=== PATIENT | female | born 1960 | race Caucasian/White ===

== ENCOUNTER 2022-10-08 11:05 | Outpatient (OUT) | payer OTHER, SELFPAY ==
--- NOTE | 2022-10-08 11:32 | XR_ITS ---
[address] [address] Patient Name: MARIE VANG MRN: [id number] date: 1960 Sex: F Assigned Patient Location: [facility] Current Patient Location: [facility] Accession/Order Number: [id number] Exam Date: 10/08/2022 11:40 Report Date: 10/08/2022 12:48 At the request of: ZOHRA CASTLE Procedure: XR lumbar spine 2-3V EXAM: XR lumbar spine 2-3V HISTORY: Chronic bilateral low back pain w/o sciatica M54.50, G89.29 COMPARISON: None. TECHNIQUE: 3 views FINDINGS: Satisfactory alignment. Maintained vertebral body heights. Disc disease and facet arthropathy of L5-S1. No acute fracture or subluxation. Unremarkable soft tissues. IMPRESSION: Mild disc disease and facet arthropathy as above. Electronically authenticated by: RYLEY BECKHAM Date: 10/08/2022 12:48
--- NOTE | 2022-10-08 11:32 | XR_ITS ---
[address] [address] Patient Name: MARIE VANG MRN: [id number] date: 1960 Sex: F Assigned Patient Location: [facility] Current Patient Location: [facility] Accession/Order Number: [id number] Exam Date: 10/08/2022 11:40 Report Date: 10/08/2022 12:46 At the request of: ZOHRA CASTLE Procedure: XR cervical spine 2-3V EXAM: XR cervical spine 2-3V HISTORY: Chronic neck pain M54.2, G89.29 COMPARISON: None. TECHNIQUE: 3 views FINDINGS: Mild reversal of cervical spine lordosis. Maintained vertebral body heights. Multilevel endplate degenerative changes and disc disease of C4-C7. No acute fracture. Unremarkable soft tissues. IMPRESSION: Degenerative changes as above. Electronically authenticated by: RYLEY BECKHAM Date: 10/08/2022 12:46
== END 2022-10-08 11:06 | disposition home or self-care (01) ==
LOC: RAD 11:13
PROVIDERS: PCP Internal Medicine; Visit Provider Internal Medicine
DX: M54.2 Cervicalgia (principal); G89.29 Other chronic pain; M54.50 Low back pain, unspecified
CPT/HCPCS: 72040; 72100

== ENCOUNTER 2025-04-01 17:39 | Emergency (ER) | payer MEDICARE, SELFPAY ==
--- OUTSIDE RECORDS SUMMARY | 2025-03-28 10:30 | XMS_ITS | Encounter Summary ---
Author Organization [facility] Address [address] [facility] [place] [address] Care Team Providers Care Job Printer Apprentice Name Role Phone Glenn Laughlin MD Primary Care Provider [phone] Encounter Details DateTypeDepartmentCare Team (Latest Contact Info)Rpwfgtqomrg62/15/2025 10:30 AM ESTAncillary Procedure [facility] [address] [facility] [address] [place] [id number] Encounter for screening mammogram for malignant neoplasm of breast Social History Tobacco UseTypesPacks/DayYears UsedDateSmoking Tobacco: FormerCigarettesQuit: 04/14/1985Smokeless Tobacco: FormerAlcohol UseStandard Drinks/WeekCommentsNot Currently0 (1 standard drink = 0.6 oz pure alcohol)caffeine intake: 1-2 cups per dayHousing Stability Vital SignAnswerDate RecordedIn the last 12 months, was there a time when you were not able to pay the mortgage or rent on time?Patient xrnxrsi6810/02/2022Number of Places Lived in the Last YearNot on file10/02/2022In the last 12 months, was there a time when you did not have a steady place to sleep or slept in ashelter (including now)?Patient xibrujl3410/02/2022Humiliation, Afraid, Rape, and Kick questionnaireAnswerDate RecordedWithin the last year, have you been afraid of your partner or ex-partner?No02/03/2025Within the last year, have you been humiliated or emotionally abused in other ways by your partner or ex-partner?No02/03/2025Within the last year, have you been kicked, hit, slapped, or otherwise physically hurt by your partner or ex-partner?No 02/03/2025Within the last year, have you been raped or forced to have any kind of sexual activity by your partner or ex-partner?No02/03/2025Social Connection and Isolation PanelAnswerDate RecordedIn a typical week, how many times do you talk on the phone with family, friends, or neighbors?More than three times a week02/03/2025How often do you get together with friends or relatives?Three times a week02/03/2025How often do you attend episcopal or sabianism services?More than 4 times per year02/03/2025Do you belong to any clubs or organizations such as episcopal groups, unions, fraternal or athletic groups, or school groups?Yes 02/03/2025How often do you attend meetings of the clubs or organizations you belong to?More than 4 times per year02/03/2025re you , , , , never , or living with a partner?Fqomqad6102/03/2025 AUDIT-CAnswerDate RecordedQ1: How often do you have a drink containing alcohol? Never02/03/2025Q2: How many drinks containing alcohol do you have on a typical day when you are drinking?Patient does not drink02/03/2025Q3: How often do you have six or more drinks on one occasion?Never02/03/2025Overall Financial Resource Strain (CARDIA)AnswerDate RecordedHow hard is it for you to pay for the very basics like food, housing, medical care, and heating?Not hard at all 02/03/2025[facility] of Occupational Health - Occupational Stress QuestionnaireAnswerDate RecordedDo you feel stress - tense, restless, nervous, or anxious, or unable to sleep at night because yourmind is troubled all the time - these days?Only a nucjnx3202/03/2025Exercise Vital SignAnswerDate Recorded On average, how many days per week do you engage in moderate to strenuous exercise (like a brisk walk)?2 days02/03/2025On average, how many minutes do you engage in exercise at this level?40 min02/03/2025Hunger Vital SignAnswerDate RecordedWithin the past 12 months, you worried that your food would run out before you got the money to buymore.Never true02/03/2025Within the past 12 months, the food you bought just didn't last and you didn't have money to get more.Never true02/03/2025PRAPARE - TransportationAnswerDate RecordedIn the past 12 months, has lack of transportation kept you from medical appointments or from getting medications?No02/03/2025In the past 12 months, has lack of transportation kept you from meetings, work, or from getting things needed for daily living?No02/03/2025Housing Stability Vital SignAnswerDate RecordedIn the last 12 months, was there a time when you were not able to pay the mortgage or rent on time?No02/03/2025Number of Times Moved in the Last YearNot on file 02/03/2025t any time in the past 12 months, were you homeless or living in a group home (including now)?No02/03/2025B1300 Health LiteracyAnswerDate RecordedHow often do you need to have someone help you when you read instructions, pamphlets, or other written material from your doctor or pharmacy?Never 02/03/2025CommentsNoSex and Gender InformationValueDate RecordedSex Assigned at BirthNot on fileLegal UadQpqwlp89/15/2023 7:12 PM EDTGender Identity Not on fileSexual OrientationNot on filedocumented as of this encounter Plan of Treatment DateTypeDepartmentCare Team (Latest Contact Info)Btcqqjrhmus15/21/2026 11:45 AM ESTOffice Visit [facility] [place] [facility] [address] [place] [address] Damion Shankar MD [address] [place] [address] documented as of this encounter Procedures Procedure NamePriorityDate/TimeAssociated DiagnosisCommentsBI MAMMOGRAM SCREENING TOMOSYNTHESIS XNHRRPFPDDrxbtvh18/15/2025 10:49 AM EST Encounter for screening mammogram for malignant neoplasm of breast documented in this encounter Results * Bilateral screening mammogram with tomosynthesis (03/28/2025 10:49 AM EST) Anatomical RegionLateralityModalityBreastBilateralMammographySpecimen (Source) Anatomical Location / LateralityCollection Method / VolumeCollection Time Received Time03/28/2025 11:49 AM EST Impressions 03/28/2025 11:54 AM EST Impression: No specific evidence of malignancy seen in either breast. BIRADS 2 - Benign Findings DENSITY: There are scattered areas of fibroglandular density. FOLLOW-UP: Routine Screening Mammogram Board Certified Radiologists. ??Accredited by the ACR and FDA. MAMMOGRAPHY IS VERY IMPORTANT TO YOUR HEALTH. ??THE [employer] GUIDELINES RECOMMEND THAT WOMEN 40 YEARS OF AGE AND OLDER SHOULD HAVE A MAMMOGRAM EVERY YEAR. A REMINDER LETTER WILL BE SENT AT THE APPROPRIATE TIME. ?? ELECTRONICALLY SIGNED BY: Ace Esparza M.D. Narrative 03/28/2025 11:54 AM EST Examination: BI MAMMOGRAM SCREENING TOMOSYNTHESIS BILATERAL Clinical History: yearly Technique: Screening digital mammography study of both breasts was performed with 2-D and 3-D tomosynthesis imaging. Study was compared to the prior exam dated 03/26/2024. Findings: There is no evidence of interval dominant spiculated mass, grouped microcalcifications, or skin thickening which would be suggestive of malignancy. ?? A few benign-appearing calcifications are seen on the right. Axillary lymph nodes including partially visualized lymph nodes are noted bilaterally and appear grossly unremarkable. Procedure Note Ace Esparza MD - 03/28/2025 Examination: BI MAMMOGRAM SCREENING TOMOSYNTHESIS BILATERAL Clinical History: yearly Technique: Screening digital mammography study of both breasts wasperformed with 2-D and 3-D tomosynthesis imaging. Study was compared tothe prior exam dated 03/26/2024. Findings: There is no evidence of interval dominant spiculated mass,grouped microcalcifications, or skin thickening which would be suggestiveof malignancy. A few benign-appearing calcifications are seen on the right. Axillarylymph nodes including partially visualized lymph nodes are notedbilaterally and appear grossly unremarkable. IMPRESSION: Impression: No specific evidence of malignancy seen in either breast. BIRADS 2 - Benign Findings DENSITY: There are scattered areas of fibroglandular density. FOLLOW-UP: Routine Screening Mammogram Board Certified Radiologists. Accredited by the ACR and FDA. MAMMOGRAPHY IS VERY IMPORTANT TO YOUR HEALTH. THE [employer] GUIDELINES RECOMMEND THAT WOMEN 40 YEARS OF AGE AND OLDER SHOULD HAVE AMAMMOGRAM EVERY YEAR. A REMINDER LETTER WILL BE SENT AT THE APPROPRIATE TIME. ELECTRONICALLY SIGNED BY: Ace Esparza M.D. Authorizing ProviderResult TypeResult StatusDamion Shankar MDIMG BI PROCEDURES Final Result documented in this encounter Visit Diagnoses Diagnosis Encounter for screening mammogram for malignant neoplasm of breast documented in this encounter Care Teams Team MemberRelationshipSpecialtyStart DateEnd Date Glenn Laughlin MD [address] [place] [address] PCP - GeneralInternal Medicine09/10/22documented as of this encounter
--- OUTSIDE RECORDS SUMMARY | 2025-03-28 11:15 | XMS_ITS | Encounter Summary ---
Author Organization [facility] Address [address] [place] [address] Care Team Providers Care Php Web Developer Name Role Phone Glenn Laughlin MD Primary Care Provider [phone] Encounter Details DateTypeDepartmentCare Team (Latest Contact Info)Alnexlhatyu05/15/2025 11:15 AM ESTOffice Visit [facility] [address] [facility] [address] [place] [phone] Damion Shankar MD [address] [facility] [address] [place] [address] Osteoporosis, post-menopausal (Primary Dx); Urinary body odor; Cervical cancer screening; Gross hematuria Social History Tobacco UseTypesPacks/DayYears UsedDateSmoking Tobacco: FormerCigarettesQuit: 04/14/1985Smokeless Tobacco: FormerAlcohol UseStandard Drinks/WeekCommentsNot Currently0 (1 standard drink = 0.6 oz pure alcohol)caffeine intake: 1-2 cups per dayHousing Stability Vital SignAnswerDate RecordedIn the last 12 months, was there a time when you were not able to pay the mortgage or rent on time?Patient pmsobzc0210/02/2022Number of Places Lived in the Last YearNot on file10/02/2022In the last 12 months, was there a time when you did not have a steady place to sleep or slept in ashelter (including now)?Patient tfgidih9410/02/2022Humiliation, Afraid, Rape, and Kick questionnaireAnswerDate RecordedWithin the [...] times a week02/03/2025How often do you attend temple or sabianist services?More than 4 times per year02/03/2025Do you belong to any clubs or organizations such as temple groups, unions, fraternal or athletic groups, or school groups?Yes 02/03/2025How often do you attend meetings of the clubs or organizations you belong to?More than 4 times per year02/03/2025re you , , , , never , or living with a partner?Xksivhk5802/03/2025 AUDIT-CAnswerDate RecordedQ1: How often do you have [...] medical care, and heating?Not hard at all 02/03/2025Fin[facility] [place] of Occupational Health - Occupational Stress QuestionnaireAnswerDate RecordedDo you feel stress - tense, restless, nervous, or anxious, or unable to sleep at night because yourmind is troubled all the time - these days?Only a zprdqv2502/03/2025Exercise Vital SignAnswerDate Recorded On average, how many [...] were you homeless or living in a fdc (including now)?No02/03/2025B1300 Health LiteracyAnswerDate RecordedHow often do you need to have someone help you when you read instructions, pamphlets, or other written material from your doctor or pharmacy?Never 02/03/2025CommentsNoSex and Gender InformationValueDate RecordedSex Assigned at BirthNot on fileLegal RuzUjbzbe73/15/2023 7:12 PM EDTGender Identity Not on fileSexual OrientationNot on filedocumented as of this encounter Last Filed Vital Signs Vital SignReadingTime TakenCommentsBlood Bieczoin605/82/ 11:12 AM EST Pulse--Temperature--Respiratory Rate--Oxygen Saturation--Inhaled Oxygen Concentration--Frlfiy02.5 kg (162 lb)03/28/2025 11:12 AM ESTHeight--Body Mass Index27.8110 11:16 AM EDTdocumented in this encounter Progress Notes * Damion Shankar MD - 03/28/2025 11:15 AM EST Images from the original note were not included. Damion Shankar MD Obstetrics and Gynecology Patient: Ronda Murphy, : 1960 (64 y.o.) DOS 03/28/2025 Exam Date: 03/28/2025 HPI: Pt has osteoporosis. She is treating it with diest and exercose and Ca+D supplementation. DEXA is due next year Nees PAP today Visit Vitals BP 120/82 Wt 162 lb LMP (LMP Unknown) BMI 27.81 kg/m?? OB Status Postmenopausal Smoking Status Former BSA 1.82 m?? OB History Para Term AB Living 3 1 1 0 0 1 SAB IAB Ectopic Multiple Live Births 0 0 0 0 1 # Outcome Date GA Lbr William/2nd Weight Sex Type Anes PTL Lv 3 2 1 Term Obstetric Comments Pap: 04/05-Neg WALTER: HPV Neg Mammo: 03/26/24-Neg ([facility]) DEXA: 04/06-osteoporosis Menopausal Medication and Allergies Medication Documentation Review Audit Reviewed by Lalita Hines MA (Nitrogen Operator) on 03/28/25 at 1117 Medication Order Taking? Sig Documenting Provider Last Dose Status B Complex Vitamins (VITAMIN B COMPLEX 100 IJ) [id number] Take 1 tablet by mouth Daily as needed. Historical ProviderMD Active Calcium Carb-Cholecalciferol (Caltrate 600+D3) 600-20 MG-MCG tablet [id number] 1 (one) time each day at the same time. Historical ProviderMD Active cholecalciferol (Vitamin D-3) 50 MCG (1999 UT) capsule 91344468 Daily. Historical ProviderMD Active coenzyme Q-10 30 MG capsule [id number] Take 1 capsule by mouth 1 (one) time each day. Historical ProviderMD Active Famotidine (PEPCID PO) 853559987 Yes Take by mouth Damion Shankar MD Active glucose blood (Accu-Chek Jessa Plus) test strip 50802276 1 each by Other route Daily Glenn Laughlin MD Active levothyroxine (Synthroid, Levoxyl) 75 MCG tablet [id number] TAKE 1 TABLET IN THE MORNING BEFORE A MEAL Glenn Laughlin MD Active liothyronine (Cytomel) 5 MCG tablet 94862316 TAKE 1 TABLET DAILY Glenn Laughlin MD Active Menaquinone-7 (VITAMIN K2 PO) 32602118 Take by mouth Damion Shankar MD Active Allergies Allergen Reactions Bactrim [Sulfamethoxazole-Trimethoprim] Other Pt states makes her shaky and does not like the way she feels taking this Ciprofloxacin Unknown Codeine Unknown Paroxetine Hcl Unknown Past Medical History: Diagnosis Date Breast cyst Combined hyperlipidemia Fibrocystic breast History of prediabetes Iatrogenic hypothyroidism Microscopic hematuria Osteoarthritis Left knee Osteopenia Osteoporosis Past Surgical History: Procedure Laterality Date APPENDECTOMY BREAST LUMPECTOMY 1985? COLONOSCOPY 2016 negative ECTOPIC SURGERY x2 KNEE ARTHROSCOPY W/ LASER Left 02/19/2021 THYROIDECTOMY TUBAL LIGATION Bilateral VAGINAL DELIVERY Physical Exam: Objective Physical Exam Constitutional: Appearance: Normal appearance. Genitourinary: Vulva normal. No vaginal discharge or bleeding. Mild vaginal atrophy present. Right Adnexa: not palpable. Left Adnexa: not palpable. No cervical lesion. Uterus is not enlarged or tender. Breasts: Right: Normal. Left: Normal. Pulmonary: Effort: Pulmonary effort is normal. Abdominal: General: Abdomen is flat. Palpations: Abdomen is soft. Neurological: Mental Status: She is alert. Assessment/Plan ICD-10-CM 1. Osteoporosis, post-menopausal M81.0 2. Urinary body odor L75.0 Urine dip Urine culture Urinalysis with reflex microscopic 3. Cervical cancer screening Z12.4 IGP,rfx Aptima HPV all pth 4. Gross hematuria R31.0 Urine dip Urine culture Urinalysis with reflex microscopic Orders Placed This Encounter Procedures Urine culture Print requisition?: Yes Urinalysis with reflex microscopic Print requisition?: Yes Urine dip documented in this encounter Plan of Treatment DateTypeDepartmentCare Team (Latest Contact Info)Qukjsechknp40/21/2026 11:45 AM ESTOffice Visit [facility] [place] [facility] [address] [place] [address] Damion Shankar MD [address] [place] [address] NameTypePriorityAssociated DiagnosesOrder ScheduleUrine cultureMicrobiology Routine Urinary body odor Gross hematuria Ordered: 03/28/2025documented as of this encounter Procedures Procedure NamePriorityDate/TimeAssociated DiagnosisCommentsPOCT URINALYSIS CNNOFKFHLnirhle85/15/2025 11:27 AM EST Urinary body odor Gross hematuria URINE CULTURE CLEAN CATCH IOGCQGPzvorgu07/15/2025 12:00 AM EST IGP,RFX APTIMA HPV ALL BDOYhueowt68/15/2025 12:00 AM EST Cervical cancer screening URINALYSIS CAJTZEBaevqul43/15/2025 12:00 AM EST Urinary body odor Gross hematuria CULTURE, URINE, VMTIOFYThqsvfz60/15/2025 12:00 AM EST documented in this encounter Results * Urine dip (03/28/2025 11:27 AM EST)ComponentValueRef RangeTest MethodAnalysis TimePerformed AtPathologist SignatureColor, UAYellowClarity, UAClearGlucose, UANegativeNegative - 2000(110) ++++ mg/dLBilirubin, UANegativeNegative - 4(70) +++ mg/dLKetones, UANegativeNegative - 160(16) ++++ mg/dLSpec Grav, UA1.0151 - 1.03Blood, UAPositiveNegative - 50 Tapan/mcLComment:TracepH, UA5.05 - 9Protein, UANegativeNegative - 2000(20) ++++ mg/dLUrobilinogen, UA>=8.00.2 - 12 mg/dL Leukocytes, UANegativeNegative - 500+++ Mely/mcLNitrite, UANegativeNegative - PositiveSpecimen (Source)Anatomical Location / LateralityCollection Method / VolumeCollection TimeReceived FuytHiyni15/15/2025 11:27 AM EST Narrative Authorizing ProviderResult TypeResult [facility] ENTERPRISEOINT OF CARE TEST ENTER/EDIT ORDERABLESFinal Result * Urine Culture Clean Catch Reflex (03/28/2025 12:00 AM EST)ComponentValueRef RangeTest MethodAnalysis TimePerformed AtPathologist SignatureUr Cult 1No growthLABCORPSpecimen (Source)Anatomical Location / LateralityCollection Method / VolumeCollection TimeReceived Time Narrative [facility] - 03/30/2025 2:06 AM EST Performed at: 01 - [facility] ??[id number] Eyelet Riveter: Mohan Castillo PhD, Phone: ??[phone] Authorizing ProviderResult TypeResult StatusDamion MUSTAFA URINE ORDERABLESFinal ResultPerforming OrganizationAddressCity/State/[facility] CodePhone Number [facility] * Urine culture (03/28/2025 12:00 AM EST)ComponentValueRef RangeTest Method Analysis TimePerformed AtPathologist SignatureUrine Cult Rt StatusFinal report LABCORPSpecimen (Source)Anatomical Location / LateralityCollection Method / VolumeCollection TimeReceived Timeomment:Urine, Clean Catch Pr Narrative [facility] - 03/30/2025 2:06 AM EST Performed at: [facility] ??[id number] Eyelet Riveter: Mohan Castillo PhD, Phone: ??[phone] Authorizing ProviderResult TypeResult Favio MUSTAFA MICROBIOLOGY - GENERAL ORDERABLESFinal ResultPerforming OrganizationAddressCity/State/ZIP Code Phone Number [facility] * Urinalysis with reflex microscopic (03/28/2025 12:00 AM EST)ComponentValueRef RangeTest MethodAnalysis TimePerformed AtPathologist SignatureSpecific [place] Urine1.0241.005 - 1.030LABCORPpH Urine6.05.0 - 7.5LABCORPColor UrineYellow YellowLABCORPAppearance UrineClearClearLABCORPWBC Esterase UrineNegative NegativeLABCORPProtein UrineNegativeNegative/TraceLABCORPGlucose UrineNegative NegativeLABCORPKetones UrineNegativeNegativeLABCORPOccult Blood UrineNegative NegativeLABCORPBilirubin UrineNegativeNegativeLABCORPUrobilinogen,Semi-Qn Urine0.20.2 - 1.0 mg/dLLABCORPNitrite UrineNegativeNegativeLABCORPUr MicroscopicCommentLABCORPComment:Microscopic not indicated and not performed. Specimen (Source)Anatomical Location / LateralityCollection Method / Volume Collection TimeReceived TimeUrineUrine specimen obtained by clean catch procedure / Nhswfta19/15/68898605/29/2024 Narrative [facility] - 03/30/2025 2:06 AM EST Performed at: - [facility] ??[id number] Eyelet Riveter: Mohan Castillo PhD, Phone: ??[phone] Authorizing ProviderResult TypeResult StatusDamion MUSTAFA URINE ORDERABLESFinal ResultPerforming OrganizationAddressCity/State/ZIP CodePhone Number [facility] * IGP,rfx Aptima HPV all pth (03/28/2025 12:00 AM EST)ComponentValueRef Range Test MethodAnalysis TimePerformed AtPathologist SignatureDiagnosis:Comment LABC[facility]PComment: NEGATIVE FOR INTRAEPITHELIAL LESION OR MALIGNANCY. CELLULAR CHANGES ASSOCIATED WITH ATROPHY ARE PRESENT. THIS SPECIMEN WAS RESCREENED PART OF OUR OPERATOR ASSISTANT I CEMENTING PROGRAM. Specimen Adequacy:CommentLABCORPComment: Satisfactory for evaluation. ??Endocervical component may not be distinguished in cases of atrophy. Clinician Provided ICD10:CommentLABCORPComment:Z12.4Performed By:CommentLABCORP Comment:Tucker Gallegos, Chief Of Service (ASCP)QC Reviewed By:CommentLABCORPComment:Maria Luisa Grimm, Chief Of Service (ASCP)Cyto Comments.LABCORPNote:CommentLABCORPComment: The Pap smear is a screening test designed to aid in the detection of premalignant and malignant conditions of the uterine cervix. ??It is not a diagnostic procedure and should not be used as the sole means of detecting cervical cancer. ??Both false-positive and false-negative reports do occur. Test Methodology:CommentLABCORPComment: This liquid based ThinPrep(R) pap test was interpreted using the Panopto(R) Genius(TM) Cervical Algorithm whole slide imaging system. .CommentLABCORPComment: The HPV DNA reflex criteria were not met with this specimen result therefore, no HPV testing was performed. Specimen (Source)Anatomical Location / LateralityCollection Method / Volume Collection TimeReceived TimeSwabCervical swab / Qyxibdz49 Comment:Cervical Swab Print r Narrative [facility] - 03/30/2025 2:07 PM EST Performed at: 01 - [facility] [address] ??[id number] Eyelet Riveter: Val Marrero MD, Phone: ??[phone] Specimen Comment: [id number] Specimen Comment: Source.............Cervix Specimen Comment: No. of containers..01 ThinPrep Vial Authorizing ProviderResult TypeResult StatusDamion Shankar MDLAB CYTOLOGY ORDERABLESFinal ResultPerforming OrganizationAddressCity/State/ZIP CodePhone Number [facility] documented in this encounter Visit Diagnoses Diagnosis Osteoporosis, post-menopausal- Primary Senile osteoporosis Urinary body odor Other specified disorder of sweat glands Cervical cancer screening Screening for malignant neoplasm of the cervix Gross hematuria documented in this encounter Care Teams Team MemberRelationshipSpecialtyStart DateEnd Date Glenn Laughlin MD [address] [facility] [address] [place] [address] PCP - GeneralInternal Medicine09/10/22documented as of this encounter
[2025-04-01 17:45] VITALS: BP 140/92; PULSE 87; TEMP 36.6; O2SAT 97; BMI 27.5
--- NOTE | 2025-04-01 18:00 | ED_ITS ---
<Statement entered by Pau Brown MD - 04/01/25 18:39> This documentation has been reviewed and approved. HPI HPI - General Adult General Chief complaint: Wound/Laceration Stated complaint: Laceration Time Seen by Provider: 04/01/25 17:46 Source: patient Mode of arrival: walk-in History of Present Illness HPI narrative: Patient is a 64-year-old female that presents to the emergency department with complaints of laceration to the medial aspect of the left fifth digit over the DIP joint while cutting vegetables with a kitchen knife. Patient denies taking any anticoagulation or antiplatelet medications. She states she almost did not come in because she would get the bleeding stopped but when she bends her finger it restarts again. Related Data Home Medications ?Medication ?Instructions ?Recorded ?Confirmed levothyroxine 75 mcg tablet 75 mcg PO DAILY 04/01/25 1 06/02/24 liothyronine 5 mcg tablet 5 mcg PO DAILY 04/01/2503/14 Allergies Allergy/AdvReac Type Severity Reaction Status Date / Time codeine Allergy nausea, Verified 04/01/25 17:44 vomiting Opioid HPI Opioid Management Most Recent Opioid Data: Last Pain Scale 1 04/01/25, 17:45 Review of Systems ROS Status of ROS 10 or more systems reviewed and unremark able except as noted in history and below PFSH PFSH Social History Little interest or pleasure in doing things: not at all Feeling down, depressed, or hopeless: not at all Exam Narrative Exam Narrative: General: No distress, age-appropriate Skin: Warm, dry, no pallor. No rash. Left fifth digit medial side of DIP joint laceration approximately 0.5 cm, venous oozing on exam. Head: Normocephalic, atraumatic. Neck: Supple, non-tender. Eye: Pupils are equal, round and EOMI. No scleral icterus. Cardiovascular: Regular Rate and Rhythm without murmur, gallop or rub. Respiratory: No accessory muscle use or respiratory distress. Musculoskeletal: Full ROM of all extremities, no calf or popliteal tenderness. Full flexion/extension actively of the left fifth digit with 5/5 strength at the DIP, PIP, and MCP. Neurological: A&O x4. No cranial nerve dysfunction observed. No truncal ataxia. Moves all extremities. Sensation intact. Psychiatric: Cooperative and interactive. Normal mood and affect. Constitutional Vital Signs, click to edit/add: Last Vital Signs Temp 97.8 F 04/01/25 17:45 Pulse 87 04/01/25 17:45 Resp 16 04/01/25 17:45 BP 140/92 H 04/01/25 17:45 Pulse Ox 97 04/01/25 17:45 O2 Del Method Room Air 04/01/25 17:45 Documenting provider has reviewed patient's vital signs: yes Course Vital Signs Vital signs: Vital Signs Temperature 97.8 F 04/01/25 17:45 Pulse Rate 87 04/01/25 17:45 Respiratory Rate 16 04/01/25 17:45 Blood Pressure 140/92 H 04/01/25 17:45 Pulse Oximetry 97 04/01/25 17:45 Oxygen Delivery Method Room Air 04/01/25 17:45 Temperature 97.8 F 04/01/25 17:45 Pulse Rate 87 04/01/25 17:45 Respiratory Rate 16 04/01/25 17:45 Blood Pressure 140/92 H 04/01/25 17:45 Pulse Oximetry 97 04/01/25 17:45 Oxygen Delivery Method Room Air 04/01/25 17:45 Medical Decision Making [facility] Narrative Medical decision making narrative: The patient is a 64-year-old female who presented with a laceration to the lateral (ulnar) aspect of the left fifth digit over the DIP joint sustained while cutting vegetables, approximately 0.5cm. There is no evidence at this time of arterial, ligament, or tendon involvement. There is full DIP flexion/extension and 5/5 strength. <2s cap refill and sensation is intact with light touch. The laceration was thoroughly assessed, and two sutures were placed to close the wound. Given the location and mechanism of injury, a finger splint was applied to the affected digit for 3 days, with the goal of preventing DIP flexion and facilitating proper wound healing. The left digit was assessed after the splint was placed and she remains NV intact. The patient is up to date on her tetanus vaccination. Dressing was applied, wound care was discussed, and close follow-up is advised to monitor for signs of infection and to remove sutures in 5-7 days with PCP. Differential Diagnosis Differential Diagnosis: Laceration Discharge Plan Discharge Chief Complaint: Wound/Laceration Clinical Impression: Finger laceration Patient Disposition: Home, Self-Care Time of Disposition Decision: 18:34 Condition: Good Mode of Transportation: Private Vehicle Prescriptions / Home Meds: No Action levothyroxine 75 mcg tablet 75 mcg PO DAILY liothyronine 5 mcg tablet 5 mcg PO DAILY Print Language: Mongolian Instructions: Finger Laceration (ED) Additional Instructions: Wound Care * Keep the wound clean and dry for the first 24?48 hours. * After 24 hours, gently clean the area with mild soap and water. Pat dry?do not scrub. * Apply a thin layer of antibiotic ointment (if prescribed) and cover with a clean, dry bandage. Dressing Changes * Change the dressing daily or if it becomes wet or dirty. * Wash your hands before and after changing the dressing. Splint Use * Wear the finger splint continuously for the next 3 days to limit movement and help prevent wound dehiscence. * You may remove the splint briefly for hygiene and dressing changes, but avoid bending the finger. * After 3 days, you may discontinue the splint unless otherwise directed. Activity and Protection * Avoid repetitive bending, gripping, or heavy use of the injured finger until sutures are removed. * Keep the hand elevated when possible to reduce swelling and bleeding. Bleeding * Mild oozing may occur for the first 24 hours. * If bleeding restarts, apply firm pressure with a clean cloth or bandage for 10?15 minutes without checking. * Seek care if bleeding does not stop. Signs of Infection Return for care if you notice: * Increasing redness, warmth, or swelling * Pus or foul-smelling drainage * Fever or chills * Worsening pain Suture Removal * Sutures over the finger joint should be removed in 7-10 days. * Follow up with your primary care provider, urgent care, or return to the ED for removal. Return to the Emergency Department Immediately If: * Bleeding will not stop after 15 minutes of pressure * You develop numbness, tingling, or difficulty moving the finger * The wound opens or sutures pull apart Referrals: ZOHRA CASTLE [Primary Care Provider, Internal Medicine] - 1 week Referral Note: Suture removal in 7-10 days. Discharge Date/Time: 04/01/25 18:39 Procedures ED Laceration Laceration Laceration 1: Site: hand (Lateral 5th digit near DIP) Side (if applicable): left Size (cm): 0.05 Description: linear Depth: simple, single layer Anesthetic used: lidocaine 1% Anesthesia technique: local infiltration Amount (ml): 1 Pre-repair: wound explored, irrigated extensively and deep structures intact Skin layer closed with: other (Ethilon) Size (cm): 4-0 and 5-0 Number of sutures: 2 ED Ortho Splinting/Casting Orthopedic Splinting/Casting Injury #1: Side: left Splint type: Splint finger Upper extremity injury location: finger (Left 5th digit) Upper extremity immobilizer: finger (other)
[2025-04-01] MEDS: LIDOCAINE HCL 1% 100 MG/10 ML MDV INJ (18:12)
--- NOTE | 2025-04-01 18:14 | PC.NURSE ---
suture cart set up and laceration not bleeding at this time
--- OUTSIDE RECORDS SUMMARY | 2025-04-01 18:28 | XMS_ITS | Encounter Summary ---
Author Organization [facility] Address [address] [place] [address] Care Team Providers Care Advance Scout Name Role Phone Glenn Laughlin MD Primary Care Provider [phone] Encounter Details DateTypeDepartmentCare Team (Latest Contact Info)Hbsiugfeklk88/15/2025Travel Social History Tobacco UseTypesPacks/DayYears UsedDateSmoking Tobacco: FormerCigarettesQuit: 04/14/1985Smokeless Tobacco: FormerAlcohol UseStandard Drinks/WeekCommentsNot Currently0 (1 standard drink = 0.6 oz pure alcohol)caffeine intake: 1-2 cups per dayHousing Stability Vital SignAnswerDate RecordedIn the last 12 months, was there a time when you were not able to pay the mortgage or rent on time?Patient vpwdixm2110/02/2022Number of Places Lived in the Last YearNot on file10/02/2022In the last 12 months, was there a time when you did not have a steady place to sleep or slept in [facility] (including now)?Patient copqyez0410/02/2022Humiliation, Afraid, Rape, and Kick questionnaireAnswerDate RecordedWithin the [...] times a week02/03/2025How often do you attend yarsanism or worship services?More than 4 times per year02/03/2025Do you belong to any clubs or organizations such as yarsanism groups, unions, fraCHAINels or athletic groups, or school groups?Yes 02/03/2025How often do you attend meetings of the clubs or organizations you belong to?More than 4 times per year02/03/2025re you , , , , never , or living with a partner?Mvbbxdf6402/03/2025 AUDIT-CAnswerDate RecordedQ1: How often do you have [...] medical care, and heating?Not hard at all 02/03/2025[facility] - Occupational Stress QuestionnaireAnswerDate RecordedDo you feel stress - tense, restless, nervous, or anxious, or unable to sleep at night because yourmind is troubled all the time - these days?Only a behpjz2702/03/2025Exercise Vital SignAnswerDate Recorded On average, how many days per week do you engage in moderate to strenuous exercise (like a brisk walk)?2 days02/03/2025On average, how many minutes do you engage in exercise at this level?40 min10/23/2025Hunger Vital SignAnswerDate RecordedWithin the past 12 months, [...] InformationValueDate RecordedSex Assigned at BirthNot on fileLegal SgzCslcfs17/15/2023 7:12 PM EDTGender Identity Not on fileSexual OrientationNot on filedocumented as of this encounter Plan of Treatment DateTypeDepartmentCare Team (Latest Contact Info)Djkmjjrxezf21/21/2026 11:45 AM ESTOffice Visit [facility] [place] [facility] [address] [place] [address] Damion Shankar MD [address] [facility] [address] [place] [address] documented as of this encounter Visit Diagnoses Not on filedocumented in this encounter Care Teams Team MemberRelationshipSpecialtyStart DateEnd Date Glenn Laughlin MD [address] [facility] [address] [place] [address] PCP - GeneralInternal Medicine09/10/22documented as of this encounter
--- OUTSIDE RECORDS SUMMARY | 2025-04-01 18:28 | XMS_ITS | Clinical Summary ---
Author Organization [facility] Address [address] [place] [address] Phone Care Team Providers Care Drilling Fluids Specialist Name Role Phone Glenn Laughlin MD Primary Care Provider [phone] Encounters DateTypeDepartmentCare LxbqBsbuqnamzps08/13/2025 12:30 PM ESTAncillary Procedure [place] [id number] [facility] [address] [place] [id number] Encounter for screening for cardiovascular jwlzbhmpe43/12/7099Tqwpjk92/12/2025 Transcribe Orders [facility] [address] Virtual [place] [address] Glenn Laughlin MD Encounter for screening for cardiovascular disorders (Primary Dx)from Last 3 Months Social History Tobacco UseTypesPacks/DayYears UsedDateSmoking Tobacco: Never Assessed CommentsUnknownSex and Gender InformationValueDate RecordedSex Assigned at Not on fileLegal RysSmybfq51/26/2022 5:05 PM ESTGender IdentityNot on fileSexual OrientationNot on file Plan of Treatment Health MaintenanceDue DateLast DoneCommentsCT Ydgakcmhqrqh73/19/1960Colonoscopy 1959Colorectal Cancer Bhoktjawf47/19/1960FIT-DNA (Cologuard)1959FIT 1959Lipid Panel1959 5572Udupceigleptn73/19/1960Welcome to Medicare Visit 1959MMR Vaccines (1 of 1 - Standard series)1960Hepatitis C Screening 1977Cervical Cancer Gbpqcspgz96/19/1981HPV/Fmfmyn4705/02/1980Pap Smear 1980Pneumococcal Vaccine (1 of 1 - PCV)2009COVID-19 Vaccine (1 - season)2024Influenza Vaccine (#1), 02/18/2020, 12/30/2018, Additional history zdkgtsPtqfwdcky97/13/202512/, 03/26/2024, 03/18/2023, Additional history existsTSH Level/5Bone Density Scan, 03/13/2022, 12/30/2019DTaP/Tdap/Td Vaccines (2 - Td or Tdap)RSV High Risk: (Elderly (60+) or Population) (1 - 1-dose 75+ series)2034Zoster BpcskwdmCpefmkjnq33/22/2021, 12/28/2019 HIB VaccinesAged OutNo longer eligible based on patient's age to complete this topicHPV VaccinesAged OutNo longer eligible based on patient's age to complete this topicHepatitis A VaccinesAged OutNo longer eligible based on patient's age to complete this topicHepatitis B VaccinesAged OutNo longer eligible based on patient's age to complete this topicIPV VaccinesAged OutNo longer eligible based on patient's age to complete this topicMeningococcal VaccineAged OutNo longer eligible based on patient's age to complete this topicRotavirus VaccinesAged Out No longer eligible based on patient's age to complete this topic Procedures Procedure NamePriorityDate/TimeAssociated DiagnosisCommentsCT CARDIAC SCORING WO IV AQJUYJGPWbjgrjy83/13/2025 12:16 PM EST Encounter for screening for cardiovascular disorders from Last 3 Months Results * CT cardiac scoring wo IV contrast (02/24/2025 12:16 PM EST)Anatomical Region LateralityModalityThoracic, ChestComputed TomographySpecimen (Source) Anatomical Location / LateralityCollection Method / VolumeCollection Time Received Time02/24/2025 11:05 PM EST02/28/2025 4:29 PM EST Addenda Addendum by Anisha Liang MD on 02/28/2025 4:28 PM EST Interpreted By: ??Db Liang, ADDENDUM: Technical: The following is to serve as an over-read for an unenhanced cardiac CT, to evaluate the extravascular structures. ?? Contiguous unenhanced CT sections are performed from level the hamida to the upper abdomen. ? Findings: The visualized portions of both lungs are clear. ?? There is no sign of pathologic lymph node enlargement. There is no pericardial or pleural effusion. ?? Images through the upper abdomen are unremarkable. ?? The visualized osseous structures are intact. ? Impression: The extravascular structures have an unremarkable CT appearance. ?? Signed by: Db Liang 02/28/2025 4:28 PM ?? -------- ORIGINAL REPORT -------- Dictation workstation: ?? [id number] Impressions 02/24/2025 11:04 PM EST 1. Coronary artery calcium score of 0*. ?? *Coronary artery calcium scoring may be helpful in predicting the risk for future coronary heart disease events. ??According to the [employer] Clinical Expert Consensus Task Force, such testing provides important prognostic information in patients with more than one coronary heart disease risk factor. The coronary artery calcium score correlates with the annual risk of a non-fatal myocardial infarction or coronary heart disease . ?? Coronary artery score ?Annual Risk ?? 0-99 ? 0.4% 100-399 ?1.3% >400 2.4% ?? These three breakpoints correspond to lower, intermediate and high risk states for future coronary events. ??Such information should be used, along with appropriate clinical judgment, to make decisions regarding the intensity of risk factor management strategies to treat blood lipids and to modify other non-lipid coronary risk factors. ?? Reference: Thornton P et al. Circulation. ??2007; 115:402-426 ?? Reading Supervisor [employer]: Dr. Db Lyon, Date: 02/24/2025 11:04 pm ?? Signed by: Db Lyon 02/24/2025 11:04 PM Dictation workstation: ?? [id number] Narrative 02/24/2025 11:04 PM EST Interpreted By: Db Lyon, STUDY: CT CARDIAC SCORING WO IV CONTRAST; 02/24/2025 12:16 pm ?? INDICATION: Signs/Symptoms:see dx. ?? COMPARISON: None. ?? ACCESSION NUMBER(S): [id number] ?? ORDERING CLINICIAN: GLENN LAUGHLIN ?? TECHNIQUE: Using prospective ECG gating, CT scan of the coronary arteries was performed without intravenous contrast. Coronary calcium scoring ??was performed according to the method of Agatston. ?? CT Dose-Length Product (DLP): 97.52 mGy*cm CT Dose Reduction Employed: Yes, prospective gating, iterative reconstruction. ?? FINDINGS: The score and distribution of calcium in the coronary arteries is as follows: ?? LM ? 0 LAD ? 0 LCx ?0 RCA ? 0 ?? Total ? 0 ?? The visualized mid/lower ascending thoracic aorta measures 3.1 cm in diameter. The heart is normal in size. No pericardial effusion is present. ?? Procedure Note Db Lyon DO / Anisha Liang MD - 02/24/2025 Interpreted By: Db Lyon, STUDY: CT CARDIAC SCORING WO IV CONTRAST; 02/24/2025 12:16 pm INDICATION: Signs/Symptoms:see dx. COMPARISON: None. ACCESSION NUMBER(S): [id number] ORDERING CLINICIAN: GLENN LAUGHLIN TECHNIQUE: Using prospective ECG gating, CT scan of the coronary arteries was performed without intravenous contrast. Coronary calcium scoring was performed according to the method of Agatston. CT Dose-Length Product (DLP): 97.52 mGy*cm CT Dose Reduction Employed: Yes, prospective gating, iterative reconstruction. FINDINGS: The score and distribution of calcium in the coronary arteries is as follows: LM 0 LAD 0 LCx 0 RCA 0 Total 0 The visualized mid/lower ascending thoracic aorta measures 3.1 cm in diameter. The heart is normal in size. No pericardial effusion is present. IMPRESSION: 1. Coronary artery calcium score of 0*. *Coronary artery calcium scoring may be helpful in predicting the risk for future coronary heart disease events. According to the [employer] Clinical Expert Consensus Task Force, such testing provides important prognostic information in patients with more than one coronary heart disease risk factor. The coronary artery calcium score correlates with the annual risk of a non-fatal myocardial infarction or coronary heart disease . Coronary artery score Annual Risk 0-99 0.4% 100-399 1.3% >400 2.4% These three breakpoints correspond to lower, intermediate and high risk states for future coronary events. Such information should be used, along with appropriate clinical judgment, to make decisions regarding the intensity of risk factor management strategies to treat blood lipids and to modify other non-lipid coronary risk factors. Reference: Thornton P et al. Circulation. 2007; 115:402-426 Reading Supervisor [employer]: Dr. Db Lyon, Date: 02/24/2025 11:04 pm Signed by: Db Lyon 02/24/2025 11:04 PM Dictation workstation: [id number] Authorizing ProviderResult TypeResult StatusDamilagros Laughlin MDJaswant CT PROCEDURES Edited Result - Final from Last 3 Months Insurance Care Teams Team MemberRelationshipSpecialtyStart DateEnd Glenn Laughlin MD [address] [address] PCP - GeneralInternal Gcimcuku13/13/25
--- OUTSIDE RECORDS SUMMARY | 2025-04-01 18:28 | XMS_ITS | Clinical Summary ---
Author Organization [facility] Address [address] [place] [id number] Care Team Providers Care Pre Coder Name Role Phone Truman ESTRADA MD, Glenn Fulton Primary Care Provider [phone] Allergies Active AllergyReactionsCriticalityNoted DateCommentsCiprofloxacinUnknown 4609HxopelfYfomewnz36/15/2022aroxetine HclMental Status Ycxrpd8207/27/2021 Sulfamethoxazole-TrimethoprimOther: See Esdcumgt90/09/2024 Pt states made blood sugar drop; was shaking Medications MedicationSigDispense QuantityRefillsLast FilledStart DateEnd DateStatus levothyroxine (SYNTHROID) 75 mcg tablet Indications:Postsurgical hypothyroidismTake 1 tablet by mouth daily before breakfast. 90 tablet 5Active liothyronine (CYTOMEL) 5 mcg tablet Indications:Postsurgical hypothyroidismTake 1 tablet by mouth once daily. 90 tablet 5Active famotidine (PEPCID AC) 10 mg tablet Take 1 tablet by mouth two times a day.5Active Active Problems ProblemNoted DateDiagnosed VujvGgeclddprsh20/15/2024Mixed hyperlipidemia 01/27/2024ostsurgical vjxxwavhszhnpp92/15/2024 Encounters DateTypeDepartmentCare VxtlOttayzwfvna90/16/2025 11:40 AM EDTOffice Visit Endocrinology [address] [place], [place] [id number] Hernandez Leos MD Mixed hyperlipidemia (Primary Dx); Postsurgical hypothyroidism; Cfezmbfjxuj39/16/3033Pmqsmk25/02/2025Travelfrom Last 3 Months Family History Medical HistoryRelationCommentsThyroidBrotherThyroidMotherThyroidSisterGraves diseaseRelationStatusCommentsBrotherMotherSister Social History Tobacco UseTypesPacks/DayYears UsedDateSmoking Tobacco: YzkiedGpiegcejhv73034 - 1974Passive Smoke Exposure: NeverSmokeless Tobacco: Never Tobacco Cessation:Counseling Given: Not Answered Alcohol UseStandard Drinks/WeekCommentsNever0 (1 standard drink = 0.6 oz pure alcohol)Area Deprivation IndexAnswerDate RecordedNational Score (1-100), lower number is lower lgxd683101/27/2024State Score (1-10), lower number is lower risk8 01/27/2024ata from: https://www.neighborhoodatlas.medicine.[facility].edu/. Last address used for j[address] [facility]01/27/2024CommentsNoSex and Gender InformationValueDate RecordedSex Assigned at JiqloWgrhxm42/21/2024 4:36 PM EDTLegal BduVcdudq84/23/2024 8:45 AM EDTGender PnmkucvwAhfwgn43/21/2024 4:36 PM EDTSexual OrientationNot on fileOccupationIndustryJob Start DateJob End Date retiredNot on fileNot on fileNot on file Last Filed Vital Signs Vital SignReadingTime TakenCommentsBlood Rblkzzsm877/8701/27/2025 11:38 AM EDT Yixfx656301/27/2025 11:38 AM EDTTemperature--Respiratory Rate--Oxygen Saturation-- Inhaled Oxygen Concentration--Mudzmx33.5 kg (162 lb 0.6 oz)01/27/2025 11:38 AM QDXFtsobw810.8 cm (5' 4.5 )01/27/2024 1:14 PM EDTBody Mass Index27.381 1:14 PM EDT Plan of Treatment Health MaintenanceDue DateLast DoneCommentsAnnual PCP Team Chronic Disease Visit 1977Anxiety Hgoyftpsm02/19/1978Depression Kdbemxpzz08/19/1978HIV Screening 1977Hepatitis C Hgqfanajy51/19/1978CT Hzbpulrcvjbt99/19/2005Cologuard (FIT-DNA)05/02/20040626Gelulvzyphl16/19/2005Colorectal Cancer Sbtfakahs25/19/2005 Fecal Occult Blood05/02/20048950Hrncmidonbahx06/19/2005Pneumococcal Vaccine: 50+ (1 of 1 - PCV)2009Medicare Annual Wellness Visit04/14/2024dvance Directive Arykujbrie89/19/2025ovid-19 Vaccine ( - season)2024Influenza Vaccine (#1), 02/18/2020, 12/30/2018, Additional history existsMammogram Qeksquldu28, 03/26/2024, 03/18/2023, Additional history existsDiabetes Kiljsbtqt60, 01/18/2025, 01/18/2025, Additional history existsDTaP,Tdap,Td Vaccine (2 - Td or Tdap) Lipid Xbjydlapg56, 01/18/2025, 08/05/2024, Additional history existsRSV Vaccine (1 - 1-dose 75+ series)2034Shingrix DlvoflaWodsmwstn28/22/2021, 12/28/2019Bone Density IybbbxpwcWvsfpaviz16/20/2024, 03/13/2022, 12/30/2019, Additional history exists Procedures Procedure NamePriorityDate/TimeAssociated DiagnosisCommentsCOMPREHENSIVE METABOLIC QYTCIBljvtpa46/07/2025 9:53 AM EDT Mixed hyperlipidemia Prediabetes LIPID PANEL, WQQSGXZUccnvwk81/07/2025 9:53 AM EDT Mixed hyperlipidemia HEMOGLOBIN F7YWhpynev42/07/2025 9:53 AM EDT Prediabetes TSH W/REFLEX KR7Expkeav47/07/2025 9:53 AM EDT Postsurgical hypothyroidism from Last 3 Months Results * TSH W/REFLEX FT4 (01/18/2025 9:53 AM EDT)ComponentValueRef RangeTest Method Analysis TimePerformed AtPathologist SignatureTSH2.6600.270 - 4.200 mIU/L 01/18/2025 6:49 PM [facility] LABSpec[facility] (Source) Anatomical Location / LateralityCollection Method / VolumeCollection Time Received TimeBloodBLOOD SPECIMEN / UnknownVenipuncture / Eutirnj5001/18/2025 9:53 AM EDT1 9:54 AM EDT Narrative Authorizing ProviderResult TypeResult StatusHernandez Leos MDLABORATORYFinal ResultPerforming OrganizationAddressCity/State/ZIP CodePhone Number [facility] [address] [facility] Desk [place] [phone], * (ABNORMAL) LIPID PANEL, FASTING (01/18/2025 9:53 AM EDT)ComponentValueRef RangeTest MethodAnalysis TimePerformed AtPathologist SignatureCholesterol, Occyt261(H)<200 mg/dL01/18/2025 6:45 PM [facility] Comment: <200 mg/dL, Desirable 200-239 mg/dL, Borderline high >239 mg/dL, High Yoitypdbypra100(H)<150 mg/dL01/18/2025 6:45 PM [facility] LABComment: <150 mg/dL, Normal 150-199 mg/dL, Borderline high 200-499 mg/dL, High >499 mg/dL, Very high HDL Snipzbktakt55(L)>39 mg/dL01/18/2025 6:45 PM [facility] LABComment: 40-59 mg/dL, Acceptable >59 mg/dL, High: Negative risk factor for coronary heart disease <40 mg/dL, Low: Positive risk factor for coronary heart disease LDL Cholesterol, Bcawbbvuqc039(H)<100 mg/dL01/18/2025 6:45 PM [facility] LABComment: <100 mg/dL, Optimal 100-129 mg/dL, Near optimal/above optimal 130-159 mg/dL, Borderline high 160-189 mg/dL, High >189 mg/dL, Very high Secondary prevention optimal LDL Cholesterol levels are recommended to be <70 mg/dL LDL cholesterol is calculated using the Mir-NIH equation. Non HDL Gztbgvmwdqf759(H)<130 mg/dL01/18/2025 6:45 PM [facility]OH[facility] LABComment: <130 mg/dL, Optimal 130-159 mg/dL, Near optimal/above optimal 160-189 mg/dL, Borderline high 190-219 mg/dL, High >219 mg/dL, Very high Secondary prevention optimal non HDL Cholesterol levels are recommended to be <100 mg/dL VLDL Ymfwkpcqltg06(H)<30 mg/dL01/18/2025 6:45 PM EDTCPAULDING [facility] LABTC:HDL Ratio8.96(H)<5.101 6:45 PM EDTCPAULDING COUNTY HOSPITAL LABLDL:HDL Ratio6.37(H)<2.5401/18/2025 6:45 PM TCPAULDING COUNTY [facility] LABComment: Reference: 1. National Cholesterol Education Program ATP III Guideline At-A-Glance Quick Desk Reference: National Heart, Lung, and Blood [place]. National Institutes of Health. 2001: NIH Publication No. 01-3305. 2. An International Atherosclerosis Society position paper: global recommendations for the management of dyslipidemia: executive summary, Atherosclerosis. 2014: 232(2):410-413. Fasting Dpnx03vps13/07/2025 6:45 PM EDTNORT[facility]ALTH[facility] LAB Specimen (Source)Anatomical Location / LateralityCollection Method / Volume Collection TimeReceived TimeBloodBLOOD SPECIMEN / UnknownVenipuncture / Unknown 01/18/2025 9:53 AM EDT1 9:54 AM EDT Narrative Authorizing ProviderResult TypeResult StatusHernandez Leos MDLABORATORYFinal ResultPerforming OrganizationAddressCity/State/ZIP CodePhone Number [facility] [address] [facility] [address] [place] [address], [facility] [address] [place] [address] * HEMOGLOBIN A1C (01/18/2025 9:53 AM EDT)ComponentValueRef RangeTest Method Analysis TimePerformed AtPathologist SignatureHemoglobin A1C5.44.3 - 5.6 % 01/18/2025 9:31 PM [facility] LABComment:[place] Diabetes Association guidelines indicate that patients with HgbA1c in the range 5.7-6.4% are at increased risk for development of diabetes, and intervention by lifestyle modification may be beneficial. HgbA1c greater or equal to 6.5% is considered diagnostic of diabetes.Estimated Average Glucose 108mg/dL01/18/2025 9:31 PM [facility] LABComment:eAG: (Estimated average glucose) is a calculated value from HgbA1c and is cash application representative of the average blood glucose level in the last 2-3 month period.Specimen (Source)Anatomical Location / LateralityCollection Method / VolumeCollection TimeReceived TimeBloodBLOOD SPECIMEN / UnknownVenipuncture / Gyxigeq9901/18/2025 9:53 AM EDT1 9:54 AM EDT Narrative Authorizing ProviderResult TypeResult StatusHernandez Leos MDLABORATORYFinal ResultPerforming OrganizationAddressCity/State/ZIP CodePhone Number [facility] [address] * COMPREHENSIVE METABOLIC PANEL (01/18/2025 9:53 AM EDT)ComponentValueRef Range Test MethodAnalysis TimePerformed AtPathologist SignatureProtein, Total7.06.3 - 8.0 g/dL01/18/2025 11:06 AM EDTNORTHCO[facility] LABAlbumin 4.13.9 - 4.9 g/dL01/18/2025 11:06 AM EDTNORTHCOAST [facility] Calcium, Total9.38.5 - 10.2 mg/dL01/18/2025 11:06 AM EDTNORTHCOAST [facility] LABBilirubin, Total0.50.2 - 1.3 mg/dL01/18/2025 11:06 AM EDT [facility] LABAlkaline Nyhmgjsmcby9450 - 123 U/L 01/18/2025 11:06 AM EDTNORTHC[facility] GIWPOE5766 - 35 U/L 01/18/2025 11:06 AM [facility] TEPOUC754 - 38 U/L 01/18/2025 11:06 AM [facility] GMLOmmrkrc2069 - 99 mg/dL01/18/2025 11:06 AM [facility] LABComment: The [place] Diabetes Association (ADA) provides guidance for cutoff values for fasting glucose andrandom glucose. The ADA defines fasting as no caloric intake for at least 8 hours. Fasting plasma glucose results between 100 to 125 mg/dL indicate increased risk for diabetes (prediabetes). Fasting plasma glucose results greater than or equal to 126 mg/dL meet the criteria for diagnosis of diabetes. In the absence of unequivocal hyperglycemia, results should be confirmed by repeat testing. In a patient with classic symptoms of hyperglycemia or hyperglycemic crisis, random plasma glucose results greater than or equal to 200 mg/dL meet the criteria for diagnosis of diabetes. Reference: Standards of Medical Care in Diabetes 2016, [place] Diabetes Association. Diabetes Care. 2016.39(Suppl 1). MSA166 - 21 mg/dL01/18/2025 11:06 AM [facility] Creatinine0.940.58 - 0.96 mg/dL01/18/2025 11:06 AM [facility] YNBWsfbsh816344 - 144 mmol/L1 11:06 AM [facility] LABPotassium4.23.7 - 5.1 mmol/L1 11:06 AM [facility] YPAZtabqict41874 - 107 mmol/L1 11:06 AM EDT [facility] UGTOM36833 - 30 mmol/L1 11:06 AM T [facility] LABAnion Hic446 - 15 mmol/L1 11:06 AM [facility] LABEstimated Glomerular Filtration Rate67 >=60 mL/min/1.73m 01/18/2025 11:06 AM [facility] LABComment:Estimated Glomerular Filtration Rate (eGFR) is calculated using the 2020 CKD-EPI creatinine equation. This equation utilizes serum creatinine, sex, and age as parameters. The creatinine assay has traceable calibration to isotope dilution- mass spectrometry. Refer to KDIGO guidelines for clinical interpretation. In patients with unstable renal function, e.g. those with acute kidney injury, the eGFRmay not accurately reflect actual GFR.Specimen (Source)Anatomical Location / LateralityCollection Method / VolumeCollection TimeReceived TimeBloodBLOOD SPECIMEN / UnknownVenipuncture / Zyhjahs6301/18/2025 9:53 AM EDT1 9:54 AM EDT Narrative Authorizing ProviderResult TypeResult StatusHernandez Leos MDLABORATORYFinal ResultPerforming OrganizationAddressCity/State/[facility] CodePhone Number [facility] [address] [id number] from Last 3 Months Insurance Care Teams Team MemberRelationshipSpecialtyStart DateEnd Glenn Laughlin II, MD [address] [place] [address] [facility]/04[facility]23
--- OUTSIDE RECORDS SUMMARY | 2025-04-01 18:29 | XMS_ITS | Clinical Summary ---
Author Organization [facility] s [facility] Address [id number] [place] [address] Care Team Providers Care Program Aide Name Role Phone Unavailable Primary Care Provider Unavailabl e Social History Tobacco UseTypesPacks/DayYears UsedDateSmoking Tobacco: Never AssessedChildcare AnswerDate LkqowzpmSvijifyvjYjrllks06/10/2019EmploymentAnswerDate Recorded TgshigrviiLbzuykz69/10/2019CommentsUnknownSex and Gender Information ValueDate RecordedSex Assigned at BirthNot on fileLegal FmmEpwgoz93/04/2015 12:11 PM EDTGender IdentityNot on fileSexual OrientationNot on file Plan of Treatment Not on file Medical Devices Not on file
--- OUTSIDE RECORDS SUMMARY | 2025-04-01 18:29 | XMS_ITS | Clinical Summary ---
Author Organization [facility] Address [address] [place] [address] Care Team Providers Care Grease Packer Name Role Phone Glenn Laughlin MD Primary Care Provider [phone] Allergies Active AllergyReactionsCriticalityNoted DateComments Sulfamethoxazole-HqwwxtiqmrybKtczh85/09/2024 Pt states makes her shaky and does not like the way she feels taking this RijjertvxjlmbZxkezue90/15/6135MyqldugQrkfnhk37/15/2022aroxetine HclUnknown 07/27/2021 Medications MedicationSigDispense QuantityRefillsLast FilledStart DateEnd DateStatus coenzyme Q-10 30 MG capsule Take 1 capsule by mouth 1 (one) time each day.Active B Complex Vitamins (VITAMIN B COMPLEX 100 IJ) Take 1 tablet by mouth Daily as needed.Active cholecalciferol (Vitamin D-3) 50 MCG (1999 UT) capsule Daily.Active Calcium Carb-Cholecalciferol (Caltrate 600+D3) 600-20 MG-MCG tablet 1 (one) time each day at the same time.Active glucose blood (Accu-Chek Jessa Plus) test strip Indications:Prediabetes1 each by Other route Daily 100 each 4Active Menaquinone-7 (VITAMIN K2 PO) Take by mouthActive liothyronine (Cytomel) 5 MCG tablet Indications:Iatrogenic hypothyroidismTAKE 1 TABLET DAILY 90 tablet 5Active levothyroxine (Synthroid, Levoxyl) 75 MCG tablet Indications:Iatrogenic hypothyroidismTAKE 1 TABLET IN THE MORNING BEFORE A MEAL 90 tablet 5Active Famotidine (PEPCID PO) Take by mouthActive Active Problems ProblemNoted DateDiagnosed MqjgKtxxgfv65/06/5112Mesorqsgtgq07/11/2024Combined aokurztjzosxhh03/15/2022Iatrogenic ntnecuwpuzufxj10/15/2022Microscopic hematuria 6285Okljijfvva18/15/2022Difficulty stwzcpa3503/14/2021Osteoarthritis of knee 02/28/2021Thickened qxahlkxdlnl49/30/2020Age related rcoikpekemnw52/02/2019 Fibrocystic breast piumwql0204/15/2018 Encounters DateTypeDepartmentCare ZvcySbqasefdfva38/15/2025 11:15 AM ESTOffice Visit [facility] [address] [place] [phone] Damion Shankar MD Osteoporosis, post-menopausal (Primary Dx); Urinary body odor; Cervical cancer screening; Gross corgnewww03/15/2025 10:30 AM ESTAncillary Procedure [facility] [address] [place] [address] Encounter for screening mammogram for malignant neoplasm of rlmlpo9003/28/2025 Cquzro0803/21/20259720Mauexm77/14/2025bstract [facility] [address] [place] [phone] Glenn Laughlin MD 02/16/2025Telephone [facility] [address] [place] [address] Glenn Laughlin MD request for test02/04/2025 11:30 AM EDTOffice Visit [facility] [address] [place] [address] Glenn Laughlin MD Microscopic hematuria (Primary Dx)02/04/2025amboo flowsheet [facility] [address] [place] [address] Glenn Laughlin MD 02/04/20252599Zqxyde05/23/6488Paoaff40/14/2025Abstract [facility] [address] [facility] [address] [place] [address] Glenn Laughlin MD 01/24/2025 11:45 AM EDTOffice Visit [facility] [address] [facility] [address] [place] [address] Glenn Laughlin MD Dysuria; Benign essential microscopic qlrbxgqzu58/13/2025Telephone [facility] [address] [place] [address] Glenn Laughlin MD 01/24/20255292Foyavw77/07/2025Clinisync Result Encounter [facility] External Department Unsolicited Provider, Generic External Data 01/10/2025 8:45 AM EDTOffice Visit [facility] [address] [facility] [address] [place] [phone] Glenn Laughlin MD Microscopic hematuria; Dzshavr3001/10/2025Telephone [facility] [address] [facility] [address] [place] [phone] Glenn Laughlin MD 01/10/2025Travelfrom Last 3 Months Immunizations ImmunizationAdministration DatesNext DueInfluenza, injectable, MDCK, preservative free, yijeiubabqxi00/06/2020,12/30/2018,02/23/2018,01/23/2017 Influenza, injectable, quadrivalent, preservative free02/02/2021,01/25/2016 Influenza, seasonal, injectable, preservative free02/03/2015Tdap11/18/2019 Zoster, Wllwudgzlsg44/22/2021,12/28/2019 Family History Medical HistoryRelationNameCommentsCancerFatherJohnKidney diseaseFatherJohn LeukemiaMaternal GrandmotherBreast cancerMotherLillianCancerMotherLillian LeukemiaMotherLillianLung cancerMother's SisterCancerPaternal GrandmotherBreast cancerSisterJoannage 62 diagnosed with breast cancerRelationNameStatusComments FatherJohnAliveMaternal GrandmotherMotherLillianDeceasedMother's SisterPaternal GrandmotherDeceasedSisterJoann Social History Tobacco UseTypesPacks/DayYears UsedDateSmoking Tobacco: FormerCigarettesQuit: 04/14/1985Smokeless Tobacco: Former Tobacco Cessation:Counseling Given: Not Answered Alcohol UseStandard Drinks/WeekCommentsNot Currently0 (1 standard drink = 0.6 oz pure alcohol)caffeine intake: 1-2 cups per dayHousing Stability Vital SignAnswer Date RecordedIn the last 12 months, was there a time when you were not able to pay the mortgage or rent on time?Patient jdtyned1010/02/2022Number of Places Lived in the Last YearNot on file10/02/2022In the last 12 months, was there a time when you did not have a steady place to sleep or slept in [facility] (including now)?Patient dinbyjt1510/02/2022Humiliation, Afraid, Rape, and Kick questionnaire AnswerDate RecordedWithin the last year, have you been afraid of your partner or ex-partner?No02/03/2025Within the last year, have you been humiliated or emotionally abused in other ways by your partner or ex-partner?No02/03/2025 Within the last year, have you been kicked, hit, slapped, or otherwise physically hurt by your partner or ex-partner?No02/03/2025Within the last year, have you been raped or forced to have any kind of sexual activity by your part ner or ex-partner?No02/03/2025Social Connection and Isolation PanelAnswerDate RecordedIn a typical week, how many times do you talk on the phone with family, friends, or neighbors?More than three times a week02/03/2025How often do you get together with friends or relatives?Three times a week02/03/2025How often do you attend temple or voodoo services?More than 4 times per year02/03/2025Do you belong to any clubs or organizations such as temple groups, unions, fraternal or athletic groups, or school groups?Yes02/03/2025How often do you attend meetings of the clubs or organizations you belong to?More than 4 times per year02/03/2025 Are you , , , , never , or living with a partner?Epfjqyo8602/03/2025UDIT-CAnswerDate RecordedQ1: How often do you have a drink containing alcohol?Never02/03/2025Q2: How many drinks containing alcohol do you have on a typical day when you are drinking?Patient does not drink 02/03/2025Q3: How often do you have six or more drinks on one occasion?Never 02/03/2025Overall Financial Resource Strain (CARDIA)AnswerDate RecordedHow hard is it for you to pay for the very basics like food, housing, medical care, and heating?Not hard at all02/03/2025[facility] [place] [facility] Occup[facility] - Occupational Stress QuestionnaireAnswerDate RecordedDo you feel stress - tense, restless, nervous, or anxious, or unable to sleep at night because yourmind is troubled all the time - these days?Only a jdwmuy6202/03/2025Exercise Vital Sign AnswerDate RecordedOn average, how many days per week do [...] time?No02/03/2025Number of Times Moved in the Last Year Not on file02/03/2025t any time in the past 12 months, were you homeless or living in a chcf (including now)?No02/03/2025B1300 Health LiteracyAnswerDate RecordedHow often do you need to have someone help you when you read instructions, pamphlets, or other written material from your doctor or pharmacy? Never02/03/2025CommentsNoSex and Gender InformationValueDate RecordedSex Assigned at BirthNot on fileLegal NsoUmacqu66/15/2023 7:12 PM EDTGender Identity Not on fileSexual OrientationNot on file Last Filed Vital Signs Vital SignReadingTime TakenCommentsBlood Zyhkguyu907/8203/28/2025 11:12 AM EST Lkhuk747702/04/2025 11:16 AM QFEIqcfkfrfzft21.3 ??C (101 ??F)12/11/2023 3:50 PM EDTRespiratory Lmjx150409/10/2022 4:01 PM EDTOxygen Vqggzlqijk96%02/04/2025 11:16 AM EDTInhaled Oxygen Concentration--Kifvtc08.5 kg (162 lb)03/28/2025 11:12 AM XZPWpjbmq585.6 cm (5' 4 )02/04/2025 11:16 AM EDTBody Mass Index27.8102/04/2025 11:16 AM EDT Plan of Treatment DateTypeDepartmentCare Team (Latest Contact Info)Zzkstfmblil63/21/2026 11:45 AM ESTOffice Visit [facility]ATE [facility] [address] [place] [address] Damion Shankar MD [address] [place] [address] Health MaintenanceDue DateLast DoneCommentsCT Gtxyxmzpaijd18/19/1960FIT-DNA 1959FIT1959FOBT1959Sjpobipdhfsow07/19/1960Diabetes: Retinopathy Gzbwtskjn43/19/1970Pneumococcal Vaccine: 65+ Years (1 of 1 - PCV) 2009Diabetes: Urine Protein Vhmxhmqub96/01/960000/OVID-19 Vaccine ( season)2024Influenza Vaccine (#1)/, 02/18/2020, 12/30/2018, Additional history existsMedicare Annual Wellness (AWV) /02/2024, 10/15/2023, 03/18/2023, Additional history existsDiabetes: Hemoglobin A1C//10/2024, 08/05/2024, 03/09/2024, Additional history existsHPV/Psdqxu05/, 12/30/2019Cervical Cancer Screening 03/18/2026Pap Smear/08/20223132Kpozpwqrr28/15/202612/, 03/26/2024, 03/18/2023, Additional history gicaauSledwzhzrpq58/22/2033 10/03/2022, 11/01/2015, 11/01/2015Colorectal Cancer Vewzglerb06/22/2033 Procedures Procedure NamePriorityDate/TimeAssociated DiagnosisCommentsPOCT URINALYSIS XKSAHODJNjpgskd64/15/2025 11:27 AM EST Urinary body odor Gross hematuria BI MAMMOGRAM SCREENING TOMOSYNTHESIS VABVFJIMOWujrjxr17/15/2025 10:49 AM EST Encounter for screening mammogram for malignant neoplasm of breast IGP,RFX APTIMA HPV ALL CZXPzljcxd03/15/2025 12:00 AM EST Cervical cancer screening URINE CULTURE CLEAN CATCH UXIHRVIdgmkhc43/15/2025 12:00 AM EST URINALYSIS HBCDLGSlxqyty96/15/2025 12:00 AM EST Urinary body odor Gross hematuria CULTURE, URINE, HPPOYRCBylnseu28/15/2025 12:00 AM EST CBC (INCLUDES DIFF/PLT)Bhxriyb3203/04/2025 8:27 AM EST Microscopic hematuria POCT URINALYSIS ZWSHPJBCVnacxqh14/24/2025 11:54 AM EDT Microscopic hematuria URINARY TRACT INFECTION (HTRX)Lywrmyy9301/24/2025 1:22 PM EDT Dysuria Benign essential microscopic hematuria POCT URINALYSIS PYJJUCVJTcdbnib36/13/2025 11:58 AM EDT Dysuria Benign essential microscopic hematuria [facility] DEPRECATED HGB A1C EHHZfswcrg34/07/2025 9:53 AM EDT [facility] TSH W/REFLEX RH4Xzbbxnp60/07/2025 9:53 AM EDT [facility] LIPID 1995 PNL OTWEODqlttpu78/07/2025 9:53 AM EDT [facility] COMP METAB 1999 PNL HGUVXUswtdcf48/07/2025 9:53 AM EDT URINARY TRACT INFECTION (HTRX)Urhccqm7201/10/2025 9:28 AM EDT Microscopic hematuria Dysuria POCT URINALYSIS KSHFAIMUErmhbcx56/29/2025 9:00 AM EDT Microscopic hematuria Dysuria MICROALBUMIN / CREATININE URINE PGBLNSkijuql00/01/2024 10:32 AM EDT Combined hyperlipidemia Iatrogenic hypothyroidism Microscopic hematuria Prediabetes HEMOGLOBIN M2FMaupusj55/01/2024 10:32 AM EDT Combined hyperlipidemia Iatrogenic hypothyroidism Microscopic hematuria Prediabetes THINPREP TIS PAP AND HPV MRNA E6/E7 WITH REFLEX TO HPV 16,18/82Vbrgtiy02/05/2023 12:07 PM EST Cervical cancer screening Screening for HPV (human papillomavirus) THINPREP TIS PAP REFLEX HPV MRNA E6/E7 (41744)Dkctkyb4601/02/2021 COLONOSCOPY GNPELOTEVASheccnv54/20/2016 from Last 3 Months or Most Recently Relevant to Health Maintenance Results * Urine dip (03/28/2025 11:27 AM EST) Only the most recent of4 resultswithin the time period is included. ComponentValueRef RangeTest MethodAnalysis TimePerformed AtPathologist Signature Color, UAYellowClarity, UAClearGlucose, UANegativeNegative - 2000(110) ++++ mg/dLBilirubin, UANegativeNegative - 4(70) +++ mg/dLKetones, UANegativeNegative - 160(16) ++++ mg/dLSpec Grav, UA1.0151 - 1.03Blood, UAPositiveNegative - 50 Tapan/mcLComment:TracepH, UA5.05 - 9Protein, UANegativeNegative - 2000(20) ++++ mg/dLUrobilinogen, UA>=8.00.2 - 12 mg/dLLeukocytes, UANegativeNegative - 500+++ Mely/mcLNitrite, UANegativeNegative - PositiveSpecimen (Source)Anatomical Location / LateralityCollection Method / VolumeCollection TimeReceived TimeUrine 03/28/2025 11:27 AM EST Narrative Authorizing ProviderResult TypeResult StatusBrian J Raad [facility] MEDICAL CENTEROINT OF CARE TEST ENTER/EDIT ORDERABLESFinal Result * Bilateral screening mammogram with tomosynthesis (03/28/2025 [...] IS VERY IMPORTANT TO YOUR HEALTH. ??THE [employer] GUIDELINES RECOMMEND THAT WOMEN 40 [...] IS VERY IMPORTANT TO YOUR HEALTH. THE [employer] GUIDELINES RECOMMEND THAT WOMEN 40 YEARS OF AGE AND OLDER SHOULD HAVE AMAMMOGRAM EVERY YEAR. A REMINDER LETTER WILL BE SENT AT THE APPROPRIATE TIME. ELECTRONICALLY SIGNED BY: Ace Esparza M.D. Authorizing ProviderResult TypeResult StatusBramarilis HAN BI PROCEDURES Final Result * Urine Culture Clean Catch Reflex (03/28/2025 12:00 AM EST)ComponentValueRef RangeTest MethodAnalysis TimePerformed AtPathologist SignatureUr Cult 1No growthLABCORPSpecimen (Source)Anatomical Location / LateralityCollection Method / VolumeCollection TimeReceived Time Narrative [facility] - 03/30/2025 2:06 AM EST Performed at: 01 - [facility] [address] ??[id number] Mechanical Drawing Teacher: Mohan Castillo PhD, Phone: ??[phone] Authorizing ProviderResult TypeResult StatusDamion Shnakar MDLAB URINE ORDERABLESFinal ResultPerforming OrganizationAddressCity/State/ZIP CodePhone Number [facility] * IGP,rfx Aptima HPV all pth (03/28/2025 12:00 AM EST)ComponentValueRef Range Test MethodAnalysis TimePerformed AtPathologist SignatureDiagnosis:Comment LABCORPComment: NEGATIVE FOR INTRAEPITHELIAL LESION OR MALIGNANCY. CELLULAR CHANGES ASSOCIATED WITH ATROPHY ARE PRESENT. THIS SPECIMEN WAS RESCREENED PART OF OUR TWO WAY RADIO INSTALLER PROGRAM. Specimen Adequacy:CommentLABCORPComment: Satisfactory for evaluation. ??Endocervical component may not be distinguished in cases of atrophy. Clinician Provided ICD10:CommentLABCORPComment:Z12.4Performed By:CommentLABCORP Comment:Tucker Gallegos, Potato Chip Sorter (ASCP)QC Reviewed By:CommentLABCORPComment:Maria Luisa Grimm, Potato Chip Sorter (ASCP)Cyto Comments.LABCORPNote:CommentLABCORPComment: The Pap smear is a screening test designed to aid in the detection of premalignant and malignant conditions of the uterine cervix. ??It is not a diagnostic procedure and should not be used as the sole means of detecting cervical cancer. ??Both false-positive and false-negative reports do occur. Test Methodology:CommentLABCORPComment: This liquid based ThinPrep(R) pap test was interpreted using the iMeigu(R) Genius(TM) Cervical Algorithm whole slide imaging system. .CommentLABCORPComment: The HPV DNA reflex criteria were not met with this specimen result therefore, no HPV testing was performed. Specimen (Source)Anatomical Location / LateralityCollection Method / Volume Collection TimeReceived TimeSwabCervical swab / Vcmpyhj90 Comment:Cervical Swab Print r Narrative [facility] - 03/30/2025 2:07 PM EST Performed at: - [facility] [address] ??[id number] Mechanical Drawing Teacher: Val Marrero MD, Phone: ??[phone] Specimen Comment: [id number] Specimen Comment: Source.............Cervix Specimen Comment: No. of containers..01 ThinPrep Vial Authorizing ProviderResult TypeResult StatusDamion MUSTAFA CYTOLOGY ORDERABLESFinal ResultPerforming OrganizationAddressCity/State/ZIP CodePhone Number [facility] * Urinalysis with reflex microscopic (03/28/2025 12:00 AM EST)ComponentValueRef RangeTest MethodAnalysis TimePerformed AtPathologist SignatureSpecific [place] Urine1.0241.005 - 1.030LABCORPpH Urine6.05.0 - 7.5LABCORPColor UrineYellow YellowLABCORPAppearance UrineClearClearLABCORPWBC Esterase UrineNegative NegativeLABCORPProtein UrineNegativeNegative/TraceLABCORPGlucose UrineNegative NegativeLABCORPKetones UrineNegativeNegativeLABCORPOccult Blood UrineNegative NegativeLABCORPBilirubin UrineNegativeNegativeLABCORPUrobilinogen,Semi-Qn Urine0.20.2 - 1.0 mg/dLLABCORPNitrite UrineNegativeNegativeLABCORPUr MicroscopicCommentLABCORPComment:Microscopic not indicated and not performed. Specimen (Source)Anatomical Location / LateralityCollection Method / Volume Collection TimeReceived TimeUrineUrine specimen obtained by clean catch procedure / Zlxajqi81/ Narrative [facility] - 03/30/2025 2:06 AM EST Performed at: - [facility] [address] ??[id number] Mechanical Drawing Teacher: Mohan Castillo PhD, Phone: ??[phone] Authorizing ProviderResult TypeResult StatusDamion MUSTAFA URINE ORDERABLESFinal ResultPerforming OrganizationAddressty/State/ZIP CodePhone Number [facility] * Urine culture (03/28/2025 12:00 AM EST)ComponentValueRef RangeTest Method Analysis TimePerformed AtPathologist SignatureUrine Cult Rt StatusFinal report [facility]PSpecimen (Source)Anatomical Location / LateralityCollection Method / VolumeCollection TimeReceived Timeomment:Urine, Clean Catch Pr Narrative [facility] - 03/30/2025 2:06 AM EST Performed at: 01 - [facility], [place], [place] ??[id number] Mechanical Drawing Teacher: Mohan Castillo PhD, Phone: ??[phone] Authorizing ProviderResult TypeResult StatusDamion MUSTAFA MICROBIOLOGY - GENERAL ORDERABLESFinal ResultPerforming OrganizationAddressCity/State/ZIP Code Phone Number [facility] * CBC and differential (03/04/2025 8:27 AM EST)ComponentValueRef RangeTest MethodAnalysis TimePerformed AtPathologist SignatureWHITE BLOOD CELL COUNT10.6 3.8 - 10.8 Thousand/uLQUESTRED BLOOD CELL COUNT4.583.80 - 5.10 Million/uLQUEST UDWSWYCKVM76.011.7 - 15.5 g/iZBPKVWCASIEEGRCE53.835.0 - 45.0 %ZIZVSSWM36.980.0 - 100.0 hGNOOOYTQN59.427.0 - 33.0 jpKATYMOJHW71.732.0 - 36.0 g/dLQUESTComment: For adults, a slight decrease in the calculated MCHC value (in the range of 30 to 32 g/dL) is most likely not clinically significant; however, it should be interpreted with caution in correlation with other red cell parameters and the patient's clinical condition. RDW14.511.0 - 15.0 %QUESTPLATELET OPATL064285 - 400 Thousand/xPVQDHUTQN36.37.5 - 12.5 fLQUESTABSOLUTE NEUTROPHILS6,6891,500 - 7,800 cells/uLQUESTABSOLUTE LYMPHOCYTES2,128576 - 3,900 cells/uLQUESTABSOLUTE ABZNMPGQS156932 - 950 cells/uL QUESTABSOLUTE YJCUIUFSPUB90281 - 500 cells/uLQUESTABSOLUTE PJXKVKCLE138 - 200 cells/uTZWWRVNTSQBFACEOM79.1%ZVTCCNYOWIJDZQOU26.5%QUESTMONOCYTES5.9%QUEST EOSINOPHILS3.0%QUESTBASOPHILS0.5%QUESTSpecimen (Source)Anatomical Location / LateralityCollection Method / VolumeCollection TimeReceived TimeBloodVenous blood specimen / Tccrnbs0903/04/2025 8:27 AM EST03/04/2025 2:54 PM EST Narrative Resulting Agency Comment Performing Organization Information ?Site ID: [id number] ?Name: [facility] ?Address: [address] [place] [phone] ?Director: Mamta Dunlap Authorizing ProviderResult TypeResult StatusDamilagros MUSTAFA BLOOD ORDERABLESFinal ResultPerforming OrganizationAddressCity/State/ZIP CodePhone Number [facility] * URINARY TRACT INFECTION (HTRX) (01/24/2025 1:22 PM EDT) Only the most recent of2 resultswithin the time period is included. ComponentValueRef RangeTest MethodAnalysis TimePerformed AtPathologist Signature ACINETOBACTER OUHBPJAF888.961 - 24.689 ppm01/25/2025 8:05 AM EDTHealthTrackRx at LabPortACINETOBACTER BAUMANIINot Bbajphhd14.961 - 24.689 ppm01/25/2025 8:05 AM EDTHealthTrackRx at LabPortCITROBACTER PQIQDPFT464.000 - 32.015 ppm01/25/2025 8:05 AM EDTHealthTrackRx at LabPortCITROBACTER FREUNDIINot Zoeuuken97.000 - 32.015 ppm01/25/2025 8:05 AM EDTHealthTrackRx at LabPortENTEROBACTER AEROGENES, XINHTKV938.000 - 32.290 ppm01/25/2025 8:05 AM EDTHealthTrackRx at LabPort ENTEROBACTER AEROGENES, CLOACAENot Tggomwpz06.000 - 32.290 ppm01/25/2025 8:05 AM EDTHealthTrackRx at LabPortENTEROCOCCUS FAECALIS, IQVVDKC108.000 - 33.043 ppm 01/25/2025 8:05 AM EDTHealthTrackRx at LabPortENTEROCOCCUS FAECALIS, FAECIUMNot Vzjohkxq79.000 - 33.043 ppm01/25/2025 8:05 AM EDTHealthTrackRx at LabPort ESCHERICHIA OAGG724.000 - 28.500 ppm01/25/2025 8:05 AM EDTHealthTrackRx at LabSt. Vincent EvansvilleESCHERICHIA COLINot Zzqsmnja09.000 - 28.500 ppm01/25/2025 8:05 AM EDT [facility] at LabPortKLEBSIELLA PNEUMONIAE, FPMZBKP070.000 - 31.865 ppm 01/25/2025 8:05 AM EDTHealthTrackRx at LabPortKLEBSIELLA PNEUMONIAE, OXYTOCANot Iiscxfin01.000 - 31.865 ppm01/25/2025 8:05 AM EDTHealthTrackRx at LabPort MORGANELLA IGFXABCB547.961 - 24.689 ppm01/25/2025 8:05 AM EDTHealthTrackRx at [facility]ertonMORGANELLA MORGANIINot Jebrtyps22.961 - 24.689 ppm01/25/2025 8:05 AM EDT [facility]ertonPROTEUS MIRABILIS, MZVPSCWA255.000 - 28.500 ppm 01/25/2025 8:04 AM EDTHealthTrackRx at LabSt. Vincent EvansvillePROTEUS MIRABILIS, VULGARISNot Flsnkeio08.000 - 28.500 ppm01/25/2025 8:04 AM EDTHealthTrackRx at Lab[facility] PSEUDOMONAS TUBSVPPOVF764.000 - 31.801 ppm01/25/2025 8:05 AM EDTHealthTrackRx at [facility] BremertonPSEUDOMONAS AERUGINOSANot Kyffdhaj93.000 - 31.801 ppm01/25/2025 8:05 AM EDTHealthTrackRx at LabPortSTAPHYLOCOCCUS QCSPBO308.000 - 31.595 ppm01/25/2025 8:05 AM EDTHealthTrackRx at LabPortSTAPHYLOCOCCUS AUREUSNot Odhcpyuo35.000 - 31.595 ppm01/25/2025 8:05 AM EDTHealthTrackRx at LabSt. Vincent EvansvilleSTREPTOCOCCUS AGALACTIAE (GROUP B STREP)026.000 - 32.435 ppm01/25/2025 8:05 AM EDTHealthTrackRx at LabPortSTREPTOCOCCUS AGALACTIAE (GROUP B STREP)Not Dqvjdkso02.000 - 32.435 ppm 01/25/2025 8:05 AM EDTHealthTrackRx at LabPortCANDIDA ALBICANS, PARAPSILOSIS, QEIZZZVEKU031.000 - 30.347 ppm01/25/2025 8:05 AM EDTHealthTrackRx at [facility] CATRINA ALBICANS, PARAPSILOSIS, TROPICALISNot Pswkicwa93.000 - 30.347 ppm 01/25/2025 8:05 AM EDTHealthTrackRx at LabPortCANDIDA KLXMLYFT775.000 - 31.618 ppm01/25/2025 8:04 AM EDTHealthTrackRx at LabPortCANDIDA GLABRATANot Detected 23.000 - 31.618 ppm01/25/2025 8:04 AM EDTHealthTrackRx at LabPortCANDIDA KRUSEI0 23.000 - 30.873 ppm01/25/2025 8:04 AM EDTHealthTrackRx at LabPortCANDIDA KRUSEI Not Ieotwytj89.000 - 30.873 ppm01/25/2025 8:04 AM EDTHealthTrackRx at [facility] SERRATIA SPRPWKYDVQ627.000 - 31.581 ppm01/25/2025 8:05 AM EDTHealthTrackRx at LabPortSERRATIA MARCESCENSNot Oppjtjid92.000 - 31.581 ppm01/25/2025 8:05 AM EDT [facility] at LabPortSTREPTOCOCCUS PYOGENES (GROUP A STREP)019.961 - 24.689 ppm01/25/2025 8:05 AM EDTHealthTrackRx at LabPortSTREPTOCOCCUS PYOGENES (GROUP A STREP)Not Pmtxfhuh20.961 - 24.689 ppm01/25/2025 8:05 AM EDTHealthTrackRx at LabPortSTAPHYLOCOCCUS EPIDERMIDIS, HAEMOLYTICUS, LUGDUNENSIS, SAPROPHYTICUS (NTIQB551.961 - 24.689 ppm01/25/2025 8:05 AM EDTHealthTrackRx at [facility] STAPHYLOCOCCUS EPIDERMIDIS, HAEMOLYTICUS, LUGDUNENSIS, SAPROPHYTICUS (URINANot Bwvdfaxq05.961 - 24.689 ppm01/25/2025 8:05 AM EDTHealthTrackRx at [facility] STAPHYLOCOCCUS EPIDERMIDIS, HAEMOLYTICUS, LUGDUNENSIS, SAPROPHYTICUS (URINA0 19.961 - 24.689 ppm01/25/2025 8:04 AM EDTHealthTrackRx at LabSt. Vincent EvansvilleSTAPHYLOCOCCUS EPIDERMIDIS, HAEMOLYTICUS, LUGDUNENSIS, SAPROPHYTICUS (URINANot Aqiilufr90.961 - 24.689 ppm01/25/2025 8:04 AM EDTHealthTrackRx at LabSt. Vincent EvansvilleSpecimen (Source) Anatomical Location / LateralityCollection Method / VolumeCollection Time Received CkcrXreeh08/13/2025 1:22 PM EDT1 2:23 AM EDT Narrative Authorizing ProviderResult TypeResult StatusDamilagros Laughlin MDANDERSON COUNTY H[facility] BLOOD ORDERABLESFinal ResultPerforming OrganizationAddressCity/State/ZIP CodePhone Number [facility] LabSt[facility]ville [address] [facility] [address] [place] [address] * [facility] TSH W/REFLEX FT4 (01/18/2025 9:53 AM EDT)ComponentValueRef RangeTest MethodAnalysis TimePerformed AtPathologist SignatureCCF TSH SERPL-ACNC2.660 0.270 - 4.200 mIU/LCCFSpecimen (Source)Anatomical Location / Laterality Collection Method / VolumeCollection TimeReceived Time01/18/2025 9:53 AM EDT 01/18/2025 1:35 PM EDT Narrative [facility] - 01/18/2025 6:49 PM EDT Specimen Type: BLOOD SPECIMEN Ordering Facility: [facility] [facility] ?Address: [address] [place] [address] Original Ordering Provider: HERNANDO BECERRA Authorizing ProviderResult TypeResult StatusGeneric External Data Provider CLINISYNCFinal ResultPerforming OrganizationAddressCity/State/ZIP CodePhone Number CLINISYNC [facility] [address] [address] [place] [address] * (ABNORMAL) [facility] LIPID 1996 PNL SERPL (01/18/2025 9:53 AM EDT)ComponentValueRef RangeTest MethodAnalysis TimePerformed AtPathologist SignatureCCF CHOLEST SERPL-ZZNY998(H)<200 mg/dLCCFComment: <200 mg/dL, Desirable 200-239 mg/dL, Borderline high >239 mg/dL, High [facility] TRIGL SERPL-SCTN426(H)<150 mg/dLCCFComment: <150 mg/dL, Normal 150-199 mg/dL, Borderline high 200-499 mg/dL, High >499 mg/dL, Very high [facility] HDLC SERPL-MCNC27(L)>39 mg/dLCCFComment: 40-59 mg/dL, Acceptable >59 mg/dL, High: Negative risk factor for coronary heart disease <40 mg/dL, Low: Positive risk factor for coronary heart disease [facility] LDLC SERPL-TYAO807(H)<100 mg/dLCCFComment: <100 mg/dL, Optimal 100-129 mg/dL, Near optimal/above optimal 130-159 mg/dL, Borderline high 160-189 mg/dL, High >189 mg/dL, Very high Secondary prevention optimal LDL Cholesterol levels are recommended to be <70 mg/dL LDL cholesterol is calculated using the Mir-NIH equation. [facility] NONHDLC SERPL-JRSU528(H)<130 mg/dLCCFComment: <130 mg/dL, Optimal 130-159 mg/dL, Near optimal/above optimal 160-189 mg/dL, Borderline high 190-219 mg/dL, High >219 mg/dL, Very high Secondary prevention optimal non HDL Cholesterol levels are recommended to be <100 mg/dL [facility] VLDLC SERPL CALC-MCNC45(H)<30 mg/dLCCFCCF CHOLEST/HDLC SERPL8.96(H)<5.10CCF [facility] LDLC/HDLC SERPL6.37(H)<2.54CCFComment: Reference: 1. National Cholesterol Education Program ATP III Guideline At-A-Glance Quick Desk Reference: National Heart, Lung, and Blood [place]. National Institutes of Health. 2001: NIH Publication No. 01-3305. 2. An International Atherosclerosis Society position paper: global recommendations for the management of dyslipidemia: executive summary, Atherosclerosis. 2014: 232(2):410-413. [facility] FASTING [id number] (Source)Anatomical Location / Laterality Collection Method / VolumeCollection TimeReceived Time01/18/2025 9:53 AM EDT 01/18/2025 1:35 PM EDT Narrative CLINISYNC - 01/18/2025 6:45 PM EDT Specimen Type: BLOOD SPECIMEN Ordering Facility: [facility] ?Address: [address] [place], [place] [id number] Original Ordering Provider: HERNANDO BECERRA Authorizing ProviderResult TypeResult StatusGeneric External Data Provider CLINISYNCFinal ResultPerforming OrganizationAddressCity/State/ZIP CodePhone Number [facility]NC [facility] [address] [facility] [address] [place] [address] * [facility] DEPRECATED HGB A1C BLD (01/18/2025 9:53 AM EDT)ComponentValueRef RangeTest MethodAnalysis TimePerformed AtPathologist SignatureCCF HBA1C MFR BLD5.44.3 - 5.6 %CCFComment:[place] [employer] Association guidelines indicate that patients with HgbA1c in the range 5.7-6.4% are at increased risk for development of diabetes, and intervention by lifestyle modification may be b eneficial. HgbA1c greater or equal to 6.5% is considered diagnostic of diabetes.CCF EST. AVERAGE GLUCOSE BLD GHB EST-IKRC338na/dLCCFComment:eAG: (Estimated average glucose) is a calculated value from HgbA1c and is home furnishings sales representative of the average blood glucose level in the last 2-3 month period.Specimen (Source)Anatomical Location / LateralityCollection Method / VolumeCollection TimeReceived Time01/18/2025 9:53 AM EDT1 5:48 PM EDT Narrative CLINISYNC - 01/18/2025 9:31 PM EDT Specimen Type: BLOOD SPECIMEN Ordering Facility: [facility] ?Address: [address] [place] [address] Original Ordering Provider: HERNANDO BECERRA Authorizing ProviderResult TypeResult StatusGeneric External Data Provider CLINISYNCFinal ResultPerforming OrganizationAddressCity/State/ZIP CodePhone Number CLINIS[facility]NC [facility] [address] [address] * [facility] COMP METAB 2000 PNL SERPL (01/18/2025 9:53 AM EDT)ComponentValueRef Range Test MethodAnalysis TimePerformed AtPathologist SignatureCCF PROT SERPL-MCNC 7.06.3 - 8.0 g/dLCCFCCF ALBUMIN SERPL-MCNC4.13.9 - 4.9 g/dLCCFCCF CALCIUM SERPL-MCNC9.38.5 - 10.2 mg/dLCCFCCF BILIRUB SERPL-MCNC0.50.2 - 1.3 mg/dLCCFCCF ALP SERPL-JAII7420 - 123 U/LCCFCCF AST SERPL-KVFK8939 - 35 U/LCCFCCF ALT SERPL-RLQQ854 - 38 U/LCCFCCF GLUCOSE SERPL-EKOC0350 - 99 mg/dLCCFComment: The [place] Diabetes Association (ADA) provides guidance for cutoff [...] Standards of Medical Care in Diabetes 2016, [place] [employer]. Diabetes Care. 2016.39(Suppl 1). [facility] BUN SERPL-GWVI584 - 21 mg/dLCCFCCF CREAT SERPL-MCNC0.940.58 - 0.96 mg/dLCCF [facility] SODIUM SERPL-TKBG457730 - 144 mmol/LCCFCCF POTASSIUM SERPL-SCNC4.23.7 - 5.1 mmol/LCCFCCF CHLORIDE SERPL-WYIK64630 - 107 mmol/LCCFCCF CO2 SERPL-PQXD4438 - 30 mmol/LCCFCCF ANION GAP SERPL-CIVG188 - 15 mmol/LCCFEGFRCR SERPLBLD CKD-EPI 2020 67>=60 mL/min/1.73m???CCFComment:Estimated Glomerular Filtration Rate (eGFR) is calculated using the 2020 CKD-EPI creatinine equation. This equation utilizes serum creatinine, sex, and age as parameters. The creatinine assay has traceable calibration to isotope dilution-mass spectrometry. Refer to KDIGO guidelines for clinical interpretation. In patients with unstable renal function, e.g. those with acute kidney injury, the eGFRmay not accurately reflect actual GFR.Specimen (Source)Anatomical Location / LateralityCollection Method / VolumeCollection TimeReceived Time01/18/2025 9:53 AM EDT1 9:54 AM EDT Narrative CLINISYNC - 01/18/2025 11:06 AM EDT Specimen Type: BLOOD SPECIMEN Ordering Facility: [facility] ?Address: [address] [place] [address] Original Ordering Provider: HERNANDO BECERRA Authorizing ProviderResult TypeResult StatusGeneric External Data Provider CLINISYNCFinal ResultPerforming OrganizationAddressCity/State/[facility] CodePhone Number CLINISYNC [facility] [address] [place] [address] * Microalbumin / creatinine, urine ratio (10/13/2023 10:32 AM EDT)ComponentValue Ref RangeTest MethodAnalysis TimePerformed AtPathologist SignatureCREATININE, RANDOM IMTAN2410 - 275 mg/dLQUESTALBUMIN, URINE0.2See Note: mg/dLQUESTComment: Reference Range: Reference Range Not established ALBUMIN/CREATININE RATIO, RANDOM URINE7<30 mg/g creatQUESTComment: The ADA defines abnormalities in albumin excretion as follows: Albuminuria Category ?Result (mg/g creatinine) Normal to Mildly increased <30 Moderately increased ? 30-299 Severely increased > OR = 300 The ADA recommends that at least two of three specimens collected within a 3-6 month period be abnormal before considering a patient to be within a diagnostic category. Specimen (Source)Anatomical Location / LateralityCollection Method / Volume Collection TimeReceived TimeUrineUrine specimen obtained by clean catch procedure / Ispyrjg4910/13/2023 10:32 AM EDT10/13/2023 10:33 AM EDT Narrative [facility] - 10/14/2023 11:28 AM EDT FASTING:YES FASTING: YES Resulting Agency Comment Performing Organization Information ?Site ID: [id number] ?Name: [facility] ?Address: [address] [place] [id number] ?Director: Gustavo Caba MD Authorizing ProviderResult TypeResult StatusDamilagros Laughlin MDLAB URINE ORDERABLESFinal ResultPerforming OrganizationAddressCity/State/ZIP CodePhone Number [facility] * THINPREP TIS PAP AND HPV MRNA E6/E7 WITH REFLEX TO HPV 16,18/45 (03/18/2023 12:07 PM EST)ComponentValueRef RangeTest MethodAnalysis TimePerformed At Pathologist SignatureCLINICAL INFORMATIONQUESTComment:None givenLMPQUEST Comment:NONE GIVENPREV. PAPQUESTComment:NONE GIVENPREV. BXQUESTComment:NONE GIVENSOURCEQUESTComment:None givenSTATEMENT OF ADEQUACYQUESTComment: SATISFACTORY FOR EVALUATIONINTERPRETATION/RESULTQUESTComment: Cytology Results: Negative for intraepithelial lesion or malignancy. Atrophic pattern; predominantly parabasal cells COMMENTQUESTComment: This Pap test has been evaluated with computer assisted technology. Parabasal cells in smears that lack maturation due to atrophy or other hormonal reasons cannot be differentiated from transformation zone cells. Accordingly, presence or absence of endocervical or transformation zone components cannot be reported in this patient. CYTOTECHNOLOGISTQUESTComment: [facility], CT(ASCP) CT screening location: [facility] [place], [address] [place] [address], [place] [address]. (ALWAYS MESSAGE)QUESTComment: EXPLANATORY NOTE: The Pap is a screening test for cervical cancer. It is not a diagnostic test and is subject to false negative and false positive results. It is most reliable when a satisfactory sample, regularly obtained, is submitted with relevant clinical findings and history, and when the Pap result is evaluated along with historic and current clinical information. HPV MRNA E6/E7Not DetectedNot DetectedQUESTComment: Methodology: Bufferer-Mediated Amplification This assay detects E6/E7 viral messenger RNA (mRNA) from 14 high-risk HPV types (16,18,31,33,35,39,45,51,52,56,58,59,66,68). Cervical sources are required for HPV testing. If a vaginal source from a patient who has had a total hysterectomy with removal of cervix was submitted, please contact the testing laboratory for alternative testing options. For additional information, please refer to http://education.[employer]/faq/AKK226n1 (This link if provided for information/ educational purposes only.) Specimen (Source)Anatomical Location / LateralityCollection Method / Volume Collection TimeReceived Time03/18/2023 12:07 PM EST03/19/2023 3:44 AM EST Narrative Resulting Agency Comment Performing Organization Information ?Site ID: [id number] ?Name: [facility] ?Address: [address] [place] [address], [address] [place] [address] ?Director: Gustavo Caba MD Authorizing ProviderResult TypeResult StatusBramarilis Shankar MDLAB CYTOLOGY ORDERABLESFinal ResultPerforming OrganizationAddressCity/State/ZIP CodePhone Number [facility] * THINPREP TIS PAP REFLEX HPV MRNA E6/E7 ([address]) (01/02/2021)ComponentValueRef RangeTest MethodAnalysis TimePerformed AtPathologist SignatureCLINICAL INFORMATION:None givenNOMS LEGACY EXTERNAL LABLMP:2,012[facility] LEGACY EXTERNAL LABPREV. PAP:12/30/19[facility] LE[facility] EXTER[facility] LABPREV. BX:NON[facility] LE[facility] EXTERNAL LABSOURCE:Cervix, EndocervixNOMS LEGACY EXTERNAL LABSTATEMENT OF ADEQUACY: SATISFACTORY FOR EVALUATIONNOMS LEGACY EXTERNAL LABINTERPRETATION/RESULT:SEE COMMENTNOMS LEGACY EXTERNAL LABComment: Negative for intraepithelial lesion or malignancy. Atrophic pattern; predominantly parabasal cells COMMENT:SEE COMMENTNOMS LEGACY EXTERNAL LABComment: This Pap test has been evaluated with computer assisted technology. Parabasal cells in smears that lack maturation due to atrophy or other hormonal reasons cannot be differentiated from transformation zone cells. Accordingly, presence or absence of endocervical or transformation zone components cannot be reported in this patient. HEALTH SCIENCES DEPARTMENT CHAIR:SEE COMMENTNOMS LEGACY EXTERNAL LABComment: DottieJK, CT(ASCP) CT screening location: [place] [place] [address]. REVIEW HEALTH SCIENCES DEPARTMENT CHAIR:SEE COMMENTNOMS LEGACY EXTERNAL LABComment: , CT(ASCP) CT screening location: [place] [place] [address]. COMMENTSEE COMMENTNOMS LEGACY EXTERNAL LABComment: EXPLANATORY NOTE: The Pap is a screening test for cervical cancer. It is not a diagnostic test and is subject to false negative and false positive results. It is most reliable when a satisfactory sample, regularly obtained, is submitted with relevant clinical findings and history, and when the Pap result is evaluated along with historic and current clinical information. Specimen (Source)Anatomical Location / LateralityCollection Method / Volume Collection TimeReceived Time01/02/2021 Narrative Authorizing ProviderResult TypeResult StatusJonathan F LeakeECW LABSFinal Result Performing OrganizationAddressCity/State/ZIP CodePhone Number [facility] * COLONOSCOPY DIAGNOSTIC (11/01/2015)Anatomical RegionLateralityModality Radiographic ImagingSpecimen (Source)Anatomical Location / Laterality Collection Method / VolumeCollection TimeReceived Time11/01/2015 Narrative 11/01/2015 11:54 AM EDT negative Authorizing ProviderResult TypeResult StatusDamilagros Laughlin MDIMG XR PROCEDURES Final Result from Last 3 Months or Most Recently Relevant to Health Maintenance Insurance Care Teams Team MemberRelationshipSpecialtyStart DateEnd Date Glenn Laughlin MD [address] [facility] [address] [place] [address] PCP - GeneralInternal Medicine09/10/22
--- OUTSIDE RECORDS SUMMARY | 2025-04-01 18:29 | XMS_ITS | Encounter Summary ---
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 Name Role Phone Glenn Laughlin MD Primary Care Provider [phone] Encounter Details DateTypeDepartmentCare Team (Latest Contact Info)Bfqpiuerhtd67/08/2025Travel Social History Tobacco UseTypesPacks/DayYears UsedDateSmoking Tobacco: FormerCigarettesQuit: 04/14/1985Smokeless Tobacco: FormerAlcohol UseStandard Drinks/WeekCommentsNot Currently0 (1 standard drink = 0.6 oz pure alcohol)caffeine intake: 1-2 cups per dayHousing Stability Vital SignAnswerDate RecordedIn the last 12 months, was there a time when you were not able to pay the mortgage or rent on time?Patient rqxvpvq1710/02/2022Number of Places Lived in the Last YearNot on file10/02/2022In the last 12 months, was there a time when you did not have a steady place to sleep or slept in [facility] (including now)?Patient feitvse9910/02/2022Humiliation, Afraid, Rape, and Kick questionnaireAnswerDate RecordedWithin the [...] times a week02/03/2025How often do you attend pentecostalism or zoroastrian services?More than 4 times per year02/03/2025Do you belong to any clubs or organizations such as pentecostalism groups, unions, fraLiquefied Natural [employer] or athletic groups, or school groups?Yes 02/03/2025How often do you attend meetings of the clubs or organizations you belong to?More than 4 times per year02/03/2025re you , , , , never , or living with a partner?Iejxril6602/03/2025 AUDIT-CAnswerDate RecordedQ1: How often do you have [...] medical care, and heating?Not hard at all 02/03/2025[facility] [employer] - Occupational Stress QuestionnaireAnswerDate RecordedDo you feel stress - tense, restless, nervous, or anxious, or unable to sleep at night because yourmind is troubled all the time - these days?Only a azyswa0402/03/2025Exercise Vital SignAnswerDate Recorded On average, how many [...] were you homeless or living in a residential (including now)?No02/03/2025B1300 Health LiteracyAnswerDate RecordedHow often do you need to have someone help you when you read instructions, pamphlets, or other written material from your doctor or pharmacy?Never 02/03/2025CommentsNoSex and Gender InformationValueDate RecordedSex Assigned at BirthNot on fileLegal PkcUkcggc13/15/2023 7:12 PM EDTGender Identity Not on fileSexual OrientationNot on filedocumented as of this encounter Plan of Treatment DateTypeDepartmentCare Team (Latest Contact Info)Fmvvernwfgl22/21/2026 11:45 AM ESTOffice Visit [facility] [place] [facility] [address] [place] [address] Damion Shankar MD [address] [facility] [address] [place] [address] documented as of this encounter Visit Diagnoses Not on filedocumented in this encounter Care Teams Team MemberRelationshipSpecialtyStart DateEnd Date Glenn Laughlin MD [address] [facility] [address] [place] [address] PCP - GeneralInternal Medicine09/10/22documented as of this encounter
== END 2025-04-01 18:39 | disposition home or self-care (01) ==
PROVIDERS: Emergency Provider Emergency Medicine; PCP Internal Medicine
DX: S61.217A Laceration without foreign body of left little finger without damage to nail, initial encounter (principal); W26.0XXA Contact with knife, initial encounter; Y93.G3 Activity, cooking and baking; Y92.000 Kitchen of unspecified non-institutional (private) residence as the place of occurrence of the external cause
CPT/HCPCS: 12001; 99282